=== PATIENT | male | born 1995 | race American Indian/Alaskan Native ===

== ENCOUNTER 2021-10-29 17:29 | Emergency (ER) | payer SELFPAY ==
[2021-10-29 18:47] LABS: Hematocrit 49.7 % (35.5-45.6); Mean Corpuscular HGB Conc 32 % (32-34); Mean Corpuscular Volume 91 fl (84-94); Platelet Count 218 K/mm3 (140-440); Red Blood Count 5.48 M/mm3 (3.65-5.03); Red Cell Distribution Width 15.2 % (13.2-15.2)
[2021-10-29 19:06] LABS: Calcium 8.1 mg/dL (8.4-10.2)
[2021-10-29] MEDS ORDERED: SODIUM CHLORIDE 0.9% 1000 ML 1,000 ML IV ONE ×2 (19:10→19:11)
[2021-10-29 19:30] LABS: Basophils % (Manual) 0 % (0.0-1.8); Eosinophils % (Manual) 0 % (0.0-4.3); Platelet Estimate Consistent w Auto; RBC Morphology Normal; Total Cells Counted 100
--- NOTE | 2021-10-29 19:33 | Emergency Department Report ---
HPI - General Chief Complaint: Overdose PUI?: No Time Seen by Provider: 10/29/21 17:50 - HPI HPI: This patient is a 25-year-old male with history of heroin and alcohol abuse, brought in by EMS for suspected opiate overdose. The patient received multiple dosages of intranasal as well as intravenous Narcan by EMS personnel prior to arrival. EMS personnel report the patient was brought to a local fire station by an undisclosed female. Upon the patient's arrival he was unresponsive. However the patient became responsive upon arriving to the emergency department. Patient is actively singing songs and rapping songs upon arrival, and stating "I feel just fine." He denies consuming alcohol or any illicit drugs. Denies any chest pain shortness of breath difficulty breathing headaches nausea vomiting diarrhea or any other symptoms. He does report "I feel a little sleepy." Pain currently 0/10 ED Past Medical Hx - Past Medical History Previous Medical History?: No - Social History Smoking Status: Current Every Day Smoker Substance Use Type: Alcohol, Heroin, Non Opiate Pain ED Review of Systems ROS: Stated complaint: OVERDOSE Other details as noted in HPI Comment: All other systems reviewed and negative Physical Exam - Physical Exam Vital Signs: Vital Signs 10/29/21 10/29/21 10/29/21 17:30 18:04 18:15 Temperature 97.8 F Pulse Rate 117 H 107 H 101 H Respiratory 14 14 17 Rate Blood Pressure 121/73 Blood Pressure 122/57 [Left] O2 Sat by Pulse 97 93 Oximetry 10/29/21 10/29/21 10/29/21 18:23 18:30 18:45 Temperature Pulse Rate 97 H 97 H Respiratory 18 18 14 Rate Blood Pressure 124/69 125/69 Blood Pressure [Left] O2 Sat by Pulse 97 98 92 Oximetry General: Gen: pt is well appearing, no acute distress, singing a song stating "If I had one wish, I'd make you my , make you my whole life!" Loquacious, no drooling no stridor no distress HEENT: Normocephalic atraumatic pupils equally round and reactive to light extraocular muscles intact sclera anicteric Neck: Full range of motion, no midline spinal tenderness palpation, no JVD, no carotid bruits, no nuchal rigidity CVS: S1-S2 regular rate and rhythm with no gallops rubs or murmurs, chest wall nontender Pulmonary: Clear to auscultation bilaterally, no wheezes rales or rhonchi Abdomen: Soft nondistended nontender no guarding or rebound tenderness, no palpable deformities or step-offs, normal active bowel sounds, no hepatosplenomegaly, no pulsatile masses : Deferred Extremities: No cyanosis no clubbing no edema, intact distal peripheral pulses, Integumentary: Skin normal, no petechia no purpura no abscess no lacerations no evidence of trauma no evidence of infection Neuro: Patient is awake alert and oriented to person place time situation, mentating well, cranial nerves II through XII intact, no focal neurodeficits, sensation grossly tact Psych: Calm cooperative, mood affect normal ED Course Vital Signs 10/29/21 10/29/21 10/29/21 17:30 18:04 18:15 Temperature 97.8 F Pulse Rate 117 H 107 H 101 H Respiratory 14 14 17 Rate Blood Pressure 121/73 Blood Pressure 122/57 [Left] O2 Sat by Pulse 97 93 Oximetry 10/29/21 10/29/21 10/29/21 18:23 18:30 18:45 Temperature Pulse Rate 97 H 97 H Respiratory 18 18 14 Rate Blood Pressure 124/69 125/69 Blood Pressure [Left] O2 Sat by Pulse 97 98 92 Oximetry - Reevaluation(s) Reevaluation #1: 10/29/21 18:32: Patient observed texting on personal cellular telephone, he is mildly sleepy appearing but otherwise he is well-appearing. Vitals are stable. He denies any symptoms. Patient asked to provide urinalysis sample. Reevaluation #2: 10/29/21 19:41 Patient observed to [facility] in examination room. He states he feels nauseated but denies any active abdominal pain chest pain shortness of breath difficulty breathing palpitations dizziness or any other symptoms. Pain currently 0 out of 10. ED Medical Decision Making - Lab Data Result diagrams: 10/29/21 18:28 10/29/21 18:28 - EKG Data -: EKG Interpreted by [facility] EKG shows normal: sinus rhythm Rate: normal - EKG Data When compared to previous EKG there are: changes noted - Radiology Data Radiology results: report reviewed - Medical Decision Making 25-year-old male with history of polysubstance abuse brought in by EMS for possible opioid overdose which responded to the patient having received both intranasal as well as intravenous Narcan. Patient tachycardic here. EKG demonstrates sinus tachycardia without any arrhythmia or dysrhythmias. Labs reviewed. Patient has elevated anion gap metabolic acidosis as well as alcohol intoxication. White blood cell count is 27,000 but patient has no signs or symptoms of acute infection. This may likely be secondary to metabolic demand in the setting of the patient's polysubstance abuse but this is unclear. The patient was ordered to be given 2 L of normal saline. Pt awaits administration of the 2 L of normal saline. He will require repeat comprehensive metabolic panel to ascertain that the anion gap has improved, repeat white blood cell count, and repeat alcohol level in several hours. Due to change in provider shift time at 2100, patient signed out to Dr. Phan Marquis for further management and final disposition. Critical care attestation.: If time is entered above; I have spent that time in minutes in the direct care of this critically ill patient, excluding procedure time. ED Disposition Clinical Impression: Alcohol intoxication Disposition: 30 STILL A PATIENT Is pt being admited?: No Does the pt Need Aspirin: No Condition: Stable
[2021-10-29 19:54] VITALS: BP 115/64
--- NOTE | 2021-10-29 19:57 | XRay Report ---
CHEST 1 VIEW 10/29/2021 6:51 PM INDICATION / CLINICAL INFORMATION: drug overdose. COMPARISON: None available. FINDINGS: SUPPORT DEVICES: None. HEART / MEDIASTINUM: No significant abnormality. LUNGS / PLEURA: No significant pulmonary abnormality. No significant pleural effusion. No pneumothora x. ADDITIONAL FINDINGS: No significant additional findings. IMPRESSION: 1. No acute abnormality of the chest. Signer Name: Mateo Haque MD Signed: 10/29/2021 7:53 PM Workstation Name: [id number]
[2021-10-29 19:58] LABS: Color,Urine Colorless (Yellow)
[2021-10-29 19:59] LABS: Bilirubin,Urine Negative (Negative); Blood,Urine Negative (Negative); Urobilinogen,Urine 0.2 mg/dL (<2.0)
[2021-10-29 20:03] LABS: Granular Casts,Urine 16 /LPF; Mucus,Urine FEW /HPF
[2021-10-29] MEDS ORDERED: ONDANSETRON 4 MG/2 ML INJ IV ONE (20:12)
[2021-10-29] MEDS ORDERED: FAMOTIDINE 20 MG/2 ML INJ IV ONE (20:12)
[2021-10-29 20:18] LABS: Amphetamine Screen,Urine PRESUMPTIVE NEGATIVE; Benzodiazepines Screen,Urine PRESUMPTIVE NEGATIVE; Cannabinoid Screen,Urine PRESUMPTIVE NEGATIVE; Cocaine Screen,Urine PRESUMPTIVE POSITIVE; Methadone Screen,Urine PRESUMPTIVE NEGATIVE; Opiate Screen,Urine PRESUMPTIVE NEGATIVE
--- NOTE | 2021-10-29 20:33 | Cat Scan Report ---
CT ABDOMEN AND PELVIS WITH CONTRAST INDICATION / CLINICAL INFORMATION: wbc 27k, mid abdominal pain, vomiting. TECHNIQUE: Axial CT images were obtained through the abdomen and pelvis after 100 cc Omnipaque [address] scans at this location are performed using CT dose reduction for ALARA by means of automated exposure control. COMPARISON: One view of the chest performed today. FINDINGS: LOWER CHEST: Scattered ground glass opacities are seen along the right lower lobe. No other significa nt abnormality. LIVER: No significant abnormality. GALLBLADDER: No significant abnormality. BILE DUCTS: No significant abnormality. PANCREAS: No significant abnormality. SPLEEN: No significant abnormality. ADRENALS: No significant abnormality. RIGHT KIDNEY/URETER: No significant abnormality. LEFT KIDNEY/URETER: No significant abnormality. STOMACH/SMALL BOWEL: No significant abnormality. COLON: No significant abnormality. APPENDIX: No significant abnormality. PERITONEUM: No free fluid. No free air. No fluid collection. LYMPH NODES: No significant adenopathy. VASCULATURE: No significant abnormality. URINARY BLADDER: No significant abnormality. REPRODUCTIVE ORGANS: No significant abnormality. ADDITIONAL FINDINGS: None. BONES: No significant abnormality IMPRESSION: 1. Suspected right lower lobe pneumonia. 2. No acute findings in the abdomen or pelvis to explain the patient's leukocytosis or pain. Signer Name: Mateo Haque MD Signed: 10/29/2021 8:29 PM Workstation Name: [id number]
== END 2021-10-29 21:01 | disposition left against medical advice (07) ==
LOC: ED 17:29
DX: F10.129 Alcohol abuse with intoxication, unspecified (principal); F17.200 Nicotine dependence, unspecified, uncomplicated; Y90.9 Presence of alcohol in blood, level not specified
CPT/HCPCS: 36415; 71045; 74177; 80048; 80307; 81001; 85007; 85025; 96360; 99285; J2405; J3490; J7030; Q9967; 80320; G0480

== ENCOUNTER 2021-11-01 16:45 | Inpatient (IN) | payer SELFPAY ==
[2021-11-01] MEDS ORDERED: ZIPRASIDONE MESYLATE 20 MG VIAL IM ONE (17:07)
[2021-11-01] MEDS ORDERED: SODIUM CHLORIDE 0.9% 1000 ML 1,000 ML IV ONE ×2 (17:59→21:23)
--- NOTE | 2021-11-01 18:06 | Emergency Department Report ---
History of Present Illness - General Chief Complaint: Overdose Stated Complaint: OVERDOSE Time Seen by Provider: 11/01/21 17:37 Source: EMS Mode of arrival: Stretcher Limitations: Altered Mental Status - History of Present Illness Initial Comments: 25 yo M brought in by EMS with possible overdose on unknown illicit drug. Pt's friends called for unresponsiveness and he was found face down with pinpointed pupil. He was given 4 round of narcan and he started streaming even while he was been wheeled into the ED. He continue to scream loudly until he was given Haldol, Benadryl and ativan with Geodon. No other modifying or associated factor reported. - Related Data Allergies Allergy/AdvReac Type Severity Reaction Status Date / Time Unable to Assess Allergy Unverified 10/29/21 17:45 ED Review of Systems ROS: Stated complaint: OVERDOSE Other details as noted in HPI Comment: All other systems reviewed and negative Eyes: other (dilated pupil at the ED at this time) Respiratory: denies: shortness of breath Other: overdose on unknown illicit drug ED Past Medical Hx - Social History Smoking Status: Current Every Day Smoker Substance Use Type: Alcohol, Heroin, Non Opiate Pain ED Physical Exam - General Limitations: Altered Mental Status General appearance: alert, obese (screaming and agitated ) - Head Head exam: Present: atraumatic, normal inspection - Eye Eye exam: Present: other (dilated pupil ) Pupils: Present: other (dilated pupil ) - ENT ENT exam: Present: normal exam, normal orophraynx, mucous membranes moist - Neck Neck exam: Present: normal inspection, full ROM. Absent: tenderness - Respiratory Respiratory exam: Present: normal lung sounds bilaterally. Absent: respiratory distress, accessory muscle use - Cardiovascular Cardiovascular Exam: Present: regular rate, normal rhythm, normal heart sounds - GI/Abdominal GI/Abdominal exam: Present: soft, normal bowel sounds. Absent: distended, tenderness - Extremities Exam Extremities exam: Present: normal inspection, normal capillary refill. Absent: tenderness - Back Exam Back exam: Absent: tenderness - Neurological Exam Neurological exam: Present: alert - Psychiatric Psychiatric exam: Present: agitated - Skin Skin exam: Present: warm, normal color ED Course Vital Signs 11/01/21 11/01/21 11/01/21 18:38 20:47 21:00 Pulse Rate 118 H 115 H Respiratory 18 36 H 33 H Rate Blood Pressure 109/64 Blood Pressure [Left] O2 Sat by Pulse 98 88 Oximetry 11/01/21 11/01/21 11/01/21 21:15 21:30 21:45 Pulse Rate 111 H 110 H 109 H Respiratory 29 H 25 H 26 H Rate Blood Pressure 101/65 91/68 97/64 Blood Pressure [Left] O2 Sat by Pulse 97 98 96 Oximetry 11/01/21 11/01/21 22:01 22:14 Pulse Rate 111 H 113 H Respiratory 32 H 33 H Rate Blood Pressure 73/44 Blood Pressure 126/76 [Left] O2 Sat by Pulse 91 Oximetry - Reevaluation(s) Reevaluation #1: 11/01/21 23:46 I was able to speak with patient's mother Ms Lydia Oshea who gave consent to doing the urgent dialysis and any other medical treatment that is needed - Consultations Consultation #1: 11/01/21 23:01 Dr Perea consulted who suggested to have coppersmith helper notified for their input Consultation #2: 11/01/21 23:21 Dr Saavedra consulted who suggested adding insulin 5 units iv and Sorbital and D50 with 60 g of Kayexalate, and 4 mg of Bumex--and the patient will need to be dialyzed urgently tonight. Consultation #3: 11/01/21 23:32 Dr Blveins consulted the intensive for the urgent vascular access-- who plan to come in and help with vascular access-- 11/01/21 23:42 ED Medical Decision Making - Lab Data Result diagrams: 11/01/21 18:07 11/01/21 21:37 - EKG Data -: EKG Interpreted by Me EKG shows normal: sinus rhythm Rate: tachycardia - EKG Data 11/01/21 21:44 Noted with sinus tachycardia at a rate of 114 bpm with right axis deviation with no specific ST depression or elevation noted in this abnormal ECG. - Medical Decision Making OD on unknown illicit drug -- with pinpointed pupil before narcan this is likely opioid overdose such as heroine but could also be order common street opioid--to find out we will go ahead and other UDS and routine labs -- including thyroid profile-- lab reviewed and noted with elevated potassium at 8.2 this could also be a lab error so will recheck this immediately..EKG obtained did not show Peak T Wave-- will continue to monitor. Also noted with elevated AST/ALT-- 100/58 likely alcoholic related-- creatinine is also elevated that is likely as a result of dehydration-- A repeated potassium resulted to be 8.4 so this is a true critical level-- will go ahead and give calcium bicarbonate to stabilize cardiac membrane, will also start D5 normal saline and give 5 units of insulin IV and 5 units of insulin subcu to push back the potassium across the membrane--we will consider admitting this patient for further evaluation and treatment We will go ahead and consult with Dr. Perea for further evaluation and treatment Critical Care Time: Yes (120) Critical care attestation.: If time is entered above; I have spent that time in minutes in the direct care of this critically ill patient, excluding procedure time. Pt brought in overdose on unknown illicit drug and noted with acute renal failure needing urgent dialysis tonight and due to high probability of clinically significant, life threatening deterioration, this patient required my highest level of preparedness to intervene emergently and I personally spent this critical care time directly and personally managing this patient. This critical care time included obtaining a history; examining this patient; pulse oximetry ; ordering and review of studies ; arranging urgent treatment with development of a management plan ; evaluation of patient's response to treatment ; frequent reassessment ; and, discussion with other providers. This critical care time was performed to assess and manage the high probability of imminent, life-threatening deterioration that could result in multiple organ damage if not done in a timely fashion. ED Disposition Clinical Impression: Acute hyperkalemia Opioid overdose Qualifiers: Encounter type: initial encounter Injury intent: undetermined intent Qualified Code(s): T40.2X4A - Poisoning by other opioids, undetermined, initial encounter Acute renal failure Qualifiers: Acute renal failure type: unspecified Qualified Code(s): N17.9 - Acute kidney failure, unspecified Disposition: 09 ADMITTED INPATIENT Is pt being admited?: Yes Does the pt Need Aspirin: No Condition: Critical Referrals: NORAH BLANCHARD MD [Primary Care Provider] - 3-5 Days
[2021-11-01] MEDS ORDERED: LORazepam 2 MG/ML VIAL IV ONE (18:56)
[2021-11-01] MEDS ORDERED: diphenhydrAMINE 50 MG/ML VIAL IV ONE (18:56)
[2021-11-01] MEDS ORDERED: HALOPERIDOL LACTATE 5 MG/1 ML INJ IM ONE (18:57)
[2021-11-01 19:00] LABS: Basophils % (Auto) 0.4 % (0.0-1.8); Eosinophils % (Auto) 0.3 % (0.0-4.3); Hematocrit 50.1 % (35.5-45.6); Hemoglobin 16.8 gm/dl (11.8-15.2); Lymphocytes # (Auto) 0.7 K/mm3 (1.2-5.4); Lymphocytes % (Auto) 8.2 % (13.4-35.0); Mean Corpuscular HGB Conc 34 % (32-34); Mean Corpuscular Volume 90 fl (84-94); Monocytes # (Auto) 0.2 K/mm3 (0.0-0.8); Platelet Count 199 K/mm3 (140-440); Red Blood Count 5.59 M/mm3 (3.65-5.03); Red Cell Distribution Width 14.6 % (13.2-15.2)
[2021-11-01 19:11] LABS: INR 0.88 (0.87-1.13)
[2021-11-01 19:20] LABS: Albumin 5.1 g/dL (3.9-5); Calcium 8.5 mg/dL (8.4-10.2)
[2021-11-01 19:25] LABS: Free T4 (Free Thyroxine) 1.47 ng/dL (0.76-1.46)
[2021-11-01 19:31] LABS: Chol/HDL Ratio 3.7 %
[2021-11-01] MEDS ORDERED: NALOXONE 2 MG/2 ML INJ IV ONE (20:23)
[2021-11-01 22:04] LABS: Calcium 8.2 mg/dL (8.4-10.2)
[2021-11-01] MEDS ORDERED: INSULIN REGULAR, HUMAN 100 UNITS/1 ML IV ONE (22:58)
[2021-11-01] MEDS ORDERED: INSULIN REGULAR, HUMAN 100 UNITS/1 ML SUB-Q ONE (22:58)
[2021-11-01] MEDS ORDERED: D5W/0.9% NACL 1,000 ML IV SCH (23:00)
[2021-11-01] MEDS ORDERED: SODIUM BICARBONATE 150 MEQ in DEXTROSE 5% IN WATER 1,000 ML IV SCH (23:00)
[2021-11-01] MEDS ORDERED: CALC GLUCONATE 1GM/NS 100 ML 1 GM/100 ML BAG IV ONE (23:00)
[2021-11-01] MEDS ORDERED: DEXTROSE 50% IN WATER (25GM) 50 ML SYRINGE IV ONE ×2 (23:12→23:15)
[2021-11-01] MEDS ORDERED: SODIUM POLYSTYRENE 15 GM/60 ML ORAL LIQD PR ONE (23:15)
[2021-11-01] MEDS ORDERED: BUMETANIDE 1 MG/4 ML INJ IV ONE (23:16)
[2021-11-01] MEDS ORDERED: ACETAMINOPHEN 325 MG TAB PO PRN (23:24)
[2021-11-01] MEDS ORDERED: ONDANSETRON 4 MG/2 ML INJ IV PRN (23:24)
[2021-11-01] MEDS ORDERED: MORPHINE 2 MG/1 ML INJ IV PRN (23:24)
[2021-11-01] MEDS ORDERED: ALBUTEROL 2.5 MG/3 ML NEBU IH PRN (23:24)
[2021-11-01] MEDS ORDERED: MORPHINE 4 MG/1 ML INJ IV PRN (23:24)
[2021-11-01] MEDS ORDERED: ALBUTEROL 2.5 MG/3 ML NEBU IH ONE (23:24)
--- NOTE | 2021-11-01 23:39 | Progress Note ---
Assessment and Plan Risks and benefits of [employer]ERK d/w family who are agreeable. ICU team to put in Vascath and stat HD ordered. Family consented for dialysis. Subjective Date of service: 11/01/21 Objective - Vital Signs Vital signs: Vital Signs - 12hr 11/01/21 11/01/21 11/01/21 18:38 20:47 21:00 Pulse Rate 118 H 115 H Respiratory 18 36 H 33 H Rate Blood Pressure 109/64 Blood Pressure [Left] O2 Sat by Pulse 98 88 Oximetry 11/01/21 11/01/21 11/01/21 21:15 21:30 21:45 Pulse Rate 111 H 110 H 109 H Respiratory 29 H 25 H 26 H Rate Blood Pressure 101/65 91/68 97/64 Blood Pressure [Left] O2 Sat by Pulse 97 98 96 Oximetry 11/01/21 11/01/21 22:01 22:14 Pulse Rate 111 H 113 H Respiratory 32 H 33 H Rate Blood Pressure 73/44 Blood Pressure 126/76 [Left] O2 Sat by Pulse 91 Oximetry - Lab 11/01/21 18:07 11/01/21 21:37 Most recent lab results Calcium 8.2 mg/dL (8.4-10.2) L 11/01/21 21:37 Medications & Allergies - Medications Allergies/Adverse Reactions: Allergies Unable to Assess Allergy (Unverified 10/29/21 17:45) PATIENT NONRESPONSIVE Active Medications: Generic Name Dose Route Start Last Admin Trade Name Freq PRN Reason Stop Dose Admin Acetaminophen 650 mg 11/01/21 23:24 Acetaminophen 325 Mg Tab PO Q4H PRN Pain MILD(1-3)/Fever >100.5/WALKER Albuterol 2.5 mg 11/01/21 23:24 Albuterol 2.5 Mg/3 Ml Nebu IH Q3HRT PRN Shortness Of Breath Albuterol/Ipratropium 1 ampul 11/02/21 02:00 Ipratropium/Albuterol Sulfate 3 Ml Ampul.Neb IH Q6HRT ANA M Famotidine 20 mg 11/02/21 10:00 Famotidine 20 Mg/2 Ml Inj IV BID ANA M Heparin Sodium (Porcine) 5,000 unit 11/02/21 10:00 Heparin 5,000 Unit/1 Ml Vial SUB-Q Q12HR ANA M Sodium Bicarbonate 150 meq/ 1,150 mls @ 125 mls/hr 11/01/21 23:00 Dextrose IV DIRECT ANA M Dextrose/Sodium Chloride 1,000 mls @ 125 mls/hr 11/01/21 23:00 D5ns IV DIRECT ANA M Morphine Sulfate 2 mg 11/01/21 23:24 Morphine 2 Mg/1 Ml Inj IV Q4H PRN Pain, Moderate (4-6) Morphine Sulfate 4 mg 11/01/21 23:24 Morphine 4 Mg/1 Ml Inj IV Q4H PRN Pain , Severe (7-10) Ondansetron HCl 4 mg 11/01/21 23:24 Ondansetron 4 Mg/2 Ml Inj IV Q8H PRN Nausea And Vomiting Sodium Chloride 10 ml 11/02/21 10:00 Sodium Chloride 0.9% 10 Ml Flush Syringe IV BID ANA M Sodium Chloride 10 ml 11/01/21 23:24 Sodium Chloride 0.9% 10 Ml Flush Syringe IV PRN PRN LINE FLUSH
--- NOTE | 2021-11-01 23:39 | History and Physical Report ---
History of Present Illness Date of examination: 11/01/21 Date of admission: 11/01/21 Chief complaint: Drug overdose History of present illness: 25 yo M brought in by EMS with possible overdose on unknown illicit drug. Pt's friends called for unresponsiveness and he was found face down with pinpointed pupil. He was given 4 round of narcan and he started streaming even while he was been wheeled into the ED. He continue to scream loudly until he was given Haldol, Benadryl and ativan with Arsen. No other modifying or associated factor reported. In the emergency room patient is found to have potassium of 8.4, BUN 21 and creatinine 2.9 and glucose 52. Subsequently Case was discussed with Dr. morgan cardona who suggested adding insulin 5 units iv and Sorbital and D50 with 60 g of Kayexalate, and 4 mg of Bumex--and the patient will need to be dialyzed urgently tonight. Critical care is consulted Past History Past Medical History: other (Alcohol, Heroin, Non Opiate Pain) Past Surgical History: No surgical history Social history: smoking, alcohol abuse, other (Alcohol, Heroin, Non Opiate Pain) Family history: no significant family history Medications and Allergies Allergies Allergy/AdvReac Type Severity Reaction Status Date / Time Unable to Assess Allergy Unverified 10/29/21 17:45 Active Meds: Active Medications Acetaminophen (Acetaminophen 325 Mg Tab) 650 mg PO Q4H PRN PRN Reason: Pain MILD(1-3)/Fever >100.5/WALKER Albuterol (Albuterol 2.5 Mg/3 Ml Nebu) 2.5 mg IH Q3HRT PRN PRN Reason: Shortness Of Breath Albuterol/Ipratropium (Ipratropium/Albuterol Sulfate 3 Ml Ampul.Neb) 1 ampul IH Q6HRT ANA M Famotidine (Famotidine 20 Mg/2 Ml Inj) 20 mg IV BID ANA M Heparin Sodium (Porcine) (Heparin 5,000 Unit/1 Ml Vial) 5,000 unit SUB-Q Q12HR ANA M Sodium Bicarbonate 150 meq/ (Dextrose) 1,150 mls @ 125 mls/hr IV DIRECT ANA M Dextrose/Sodium Chloride (D5ns) 1,000 mls @ 125 mls/hr IV DIRECT ANA M Morphine Sulfate (Morphine 2 Mg/1 Ml Inj) 2 mg IV Q4H PRN PRN Reason: Pain, Moderate (4-6) Morphine Sulfate (Morphine 4 Mg/1 Ml Inj) 4 mg IV Q4H PRN PRN Reason: Pain , Severe (7-10) Ondansetron HCl (Ondansetron 4 Mg/2 Ml Inj) 4 mg IV Q8H PRN PRN Reason: Nausea And Vomiting Sodium Chloride (Sodium Chloride 0.9% 10 Ml Flush Syringe) 10 ml IV BID ANA M Sodium Chloride (Sodium Chloride 0.9% 10 Ml Flush Syringe) 10 ml IV PRN PRN PRN Reason: LINE FLUSH Review of Systems All systems: negative Constitutional: fatigue, malaise, lethargy, other (Unresponsive) Exam - Constitutional Vitals: Temp Pulse Resp BP Pulse Ox 113 H 33 H 126/76 91 11/01/21 22:14 11/01/21 22:14 11/01/21 22:14 11/01/21 22:14 General appearance: Present: severe distress, well-nourished - EENT Eyes: Present: PERRL ENT: hearing intact, clear oral mucosa - Neck Neck: Present: supple, normal ROM - Respiratory Respiratory effort: normal Respiratory: bilateral: CTA - Cardiovascular Heart Sounds: Present: S1 & S2. Absent: rub, click - Extremities Extremities: pulses symmetrical, No edema Peripheral Pulses: within normal limits - Abdominal General gastrointestinal: Present: soft, non-tender, non-distended, normal bowel sounds Male genitourinary: Present: normal - Integumentary Integumentary: Present: clear, warm, dry - Musculoskeletal Musculoskeletal: gait normal, strength equal bilaterally - Psychiatric Psychiatric: other (Patient is altered mental) - Neurologic Neurologic: CNII-XII intact, moves all extremities HEART Score - HEART Score Troponin: Troponin T 0.058 ng/mL (0.00-0.029) H 11/01/21 18:07 Results - Labs CBC & Chem 7: 11/01/21 18:07 11/01/21 21:37 Labs: Laboratory Last Values WBC 7.9 K/mm3 (4.5-11.0) 11/01/21 18:07 RBC 5.59 M/mm3 (3.65-5.03) H 11/01/21 18:07 Hgb 16.8 gm/dl (11.8-15.2) H 11/01/21 18:07 Hct 50.1 % (35.5-45.6) H 11/01/21 18:07 MCV 90 fl (84-94) 11/01/21 18:07 MCH 30 pg (28-32) 11/01/21 18:07 MCHC 34 % (32-34) 11/01/21 18:07 RDW 14.6 % (13.2-15.2) 11/01/21 18:07 Plt Count 199 K/mm3 (140-440) 11/01/21 18:07 Lymph % (Auto) 8.2 % (13.4-35.0) L 11/01/21 18:07 [place] % (Auto) 3.0 % (0.0-7.3) 11/01/21 18:07 Eos % (Auto) 0.3 % (0.0-4.3) 11/01/21 18:07 Baso % (Auto) 0.4 % (0.0-1.8) 11/01/21 18:07 Lymph # (Auto) 0.7 K/mm3 (1.2-5.4) L 11/01/21 18:07 [place] # (Auto) 0.2 K/mm3 (0.0-0.8) 11/01/21 18:07 Eos # (Auto) 0.0 K/mm3 (0.0-0.4) 11/01/21 18:07 Baso # (Auto) 0.0 K/mm3 (0.0-0.1) 11/01/21 18:07 Seg Neutrophils % 88.1 % (40.0-70.0) H 11/01/21 18:07 Seg Neutrophils # 7.0 K/mm3 (1.8-7.7) 11/01/21 18:07 PT 13.1 Sec. (12.2-14.9) 11/01/21 18:07 INR 0.88 (0.87-1.13) 11/01/21 18:07 Sodium 142 mmol/L (137-145) 11/01/21 21:37 Potassium 8.4 mmol/L (3.6-5.0) H* 11/01/21 21:37 Chloride 99.1 mmol/L (98-107) 11/01/21 21:37 Carbon Dioxide 22 mmol/L (22-30) 11/01/21 21:37 Anion Gap 29 mmol/L 11/01/21 21:37 BUN 21 mg/dL (9-20) H 11/01/21 21:37 Creatinine 2.9 mg/dL (0.8-1.3) H 11/01/21 21:37 Estimated GFR 32 ml/min 11/01/21 21:37 BUN/Creatinine Ratio 7 % 11/01/21 21:37 Glucose 52 mg/dL (75-100) L 11/01/21 21:37 Calcium 8.2 mg/dL (8.4-10.2) L 11/01/21 21:37 Total Bilirubin 0.60 mg/dL (0.1-1.2) 11/01/21 18:07 AST 100 units/L (5-40) H 11/01/21 18:07 ALT 58 units/L (7-56) H 11/01/21 18:07 Alkaline Phosphatase 84 units/L (35-129) 11/01/21 18:07 Troponin T 0.058 ng/mL (0.00-0.029) H 11/01/21 18:07 Total Protein 7.7 g/dL (6.3-8.2) 11/01/21 18:07 Albumin 5.1 g/dL (3.9-5) H 11/01/21 18:07 Albumin/Globulin Ratio 2.0 % 11/01/21 18:07 Triglycerides 144 mg/dL (2-149) 11/01/21 18:07 Cholesterol 211 mg/dL (50-199) H 11/01/21 18:07 LDL Cholesterol Direct 132 mg/dL (50-130) H 11/01/21 18:07 HDL Cholesterol 57 mg/dL (40-59) 11/01/21 18:07 Cholesterol/HDL Ratio 3.70 % 11/01/21 18:07 TSH 0.808 mlU/mL (0.270-4.200) 11/01/21 18:07 Free T4 1.47 ng/dL (0.76-1.46) H 11/01/21 18:07 Assessment and Plan VTE prophylaxis?: Chemical Plan of care discussed with patient/family: Yes - Patient Problems (1) Acute hyperkalemia Current Visit: Yes Status: Acute Plan to address problem: Admit the patient to the ICU. D5 W normal saline at the rate of 125 cc/h. Patient already got insulin Kayexalate calcium gluconate and Bumex as per nephrology recommendation. We will do emergent dialysis tonight. We consulted nephrology and critical care evaluation. Recheck BMP in the morning (2) Opioid overdose Current Visit: Yes Status: Acute Qualifiers: Encounter type: initial encounter Injury intent: undetermined intent Qualified Code(s): T40.2X4A - Poisoning by other opioids, undetermined, initial encounter Plan to address problem: We counseled the patient regarding quit taking opioid. Oxygen via nasal catheter per minute. DuoNeb nebulizer every 4 hours (3) Alcohol intoxication Current Visit: No Status: Acute Plan to address problem: We will put the patient on thiamine 100 mg IV daily, folic acid 1 mg IV daily and banana bag daily. We counseled the patient regarding quit drinking (4) Cocaine abuse Current Visit: No Status: Acute Plan to address problem: We counseled regarding quit taking cocaine (5) LIT (acute kidney injury) Current Visit: Yes Status: Acute Plan to address problem: Avoid nephrotoxic drug. Renally dose medication. D5 normal saline at the rate of 125 cc/h. We will consult nephrology for emergent dialysis. Recheck BMP in the morning (6) DVT prophylaxis Current Visit: Yes Status: Acute Plan to address problem: Heparin 5000 units subcu every 12 hours for DVT prophylaxis. Pepcid 20 mg IV every 12 hours for the GI prophylaxis. Patient is a full code
[2021-11-01 23:49] LABS: Amphetamine Screen,Urine PRESUMPTIVE POSITIVE
[2021-11-02 00:16] LABS: Benzodiazepines Screen,Urine PRESUMPTIVE NEGATIVE; Cannabinoid Screen,Urine PRESUMPTIVE NEGATIVE; Cocaine Screen,Urine PRESUMPTIVE POSITIVE; Methadone Screen,Urine PRESUMPTIVE NEGATIVE; Opiate Screen,Urine PRESUMPTIVE NEGATIVE
[2021-11-02] MEDS ORDERED: MIDAZOLAM 2 MG/2 ML INJ IV ONE (00:32)
[2021-11-02] MEDS ORDERED: fentaNYL 100 MCG/2 ML INJ IV ONE (00:32)
[2021-11-02 00:34] LABS: ABG Base Excess -5.8 mmol/L (-2.0-3.0); ABG HCO3 20.6 mmol/L (20.0-26.0); ABG Methemoglobin 0.5 % (0.0-1.5); ABG Oxygen Saturation 95.3 % (95.0-99.0); ABG PCO2 43.5 mm Hg; ABG PH 7.293 pH Units (7.350-7.450); ABG PO2 77.1 mm Hg (80.0-90.0)
--- NOTE | 2021-11-02 01:15 | Procedure Note ---
Date of procedure: 11/02/21 Pre-op diagnosis: hyperkalemia, renal failure Post-op diagnosis: same Procedure: right IJ vascath placement under ultrasound guidance Spoke with mother over the phone and patient at bedside to obtain my own consent. Using ultrasound guidance and seldinger technique, a vascath was placed in the right IJ with no immediate post op complications. Good blood return from all 3 ports and good flush. Did give patient 2 of versed and 50 of Fentanyl which he tolerated well. Woke up after cathter was sutured in place. CXR at bedside. Catheter in place, no pneumothorax. Patient appears to be volume overloaded too based on CXR. Spoke with HD nurse who is at bedside and ok to use catheter. Anesthesia: local Surgeon: RITA DAVILA Estimated blood loss: minimal Condition: critical Disposition: ICU
--- NOTE | 2021-11-02 01:21 | Consultation ---
History of Present Illness - Reason for Consult Consult date: 11/02/21 Hyperkalemia, Renal Failure Requesting physician: ELSA WATKINS - History of Present Illness 25 y/o male, known drug abuser, admitted for overdose. Found to be in acute renal failure with elevated potassium Per ED repeated and was not hemolyzed (8.0). Spoke with Dr. Saavedra who recommended emergent HD. Past History Past Medical History: other (Alcohol, Heroin, Non Opiate Pain, cocaine) Past Surgical History: No surgical history Social history: smoking, alcohol abuse, other (Alcohol, Heroin, Non Opiate Pain) Family history: no significant family history Medications and Allergies Allergies Allergy/AdvReac Type Severity Reaction Status Date / Time Unable to Assess Allergy Unverified 10/29/21 17:45 Active Meds: Active Medications Acetaminophen (Acetaminophen 325 Mg Tab) 650 mg PO Q4H PRN PRN Reason: Pain MILD(1-3)/Fever >100.5/WALKER Albuterol/Ipratropium (Ipratropium/Albuterol Sulfate 3 Ml Ampul.Neb) 1 ampul IH Q6HRT ANA M Famotidine (Famotidine 20 Mg/2 Ml Inj) 20 mg IV DAILY ANA M Heparin Sodium (Porcine) (Heparin 5,000 Unit/1 Ml Vial) 5,000 unit SUB-Q Q12HR ANA M Sodium Bicarbonate 150 meq/ (Dextrose) 1,150 mls @ 125 mls/hr IV DIRECT ANA M Sodium Chloride (Nacl 0.9% 1000 Ml) 1,000 mls @ 125 mls/hr IV DIRECT ANA M Morphine Sulfate (Morphine 2 Mg/1 Ml Inj) 2 mg IV Q4H PRN PRN Reason: Pain, Moderate (4-6) Morphine Sulfate (Morphine 4 Mg/1 Ml Inj) 4 mg IV Q4H PRN PRN Reason: Pain , Severe (7-10) Ondansetron HCl (Ondansetron 4 Mg/2 Ml Inj) 4 mg IV Q8H PRN PRN Reason: Nausea And Vomiting Sodium Chloride (Sodium Chloride 0.9% 10 Ml Flush Syringe) 10 ml IV BID ANA M Sodium Chloride (Sodium Chloride 0.9% 10 Ml Flush Syringe) 10 ml IV PRN PRN PRN Reason: LINE FLUSH Review of Systems ROS unobtainable: due to mental status Exam - Constitutional Vitals: Temp Pulse Resp BP Pulse Ox 113 H 33 H 126/76 91 11/01/21 22:14 11/01/21 22:14 11/01/21 22:14 11/01/21 22:14 General appearance: Present: no acute distress, well-nourished - EENT Eyes: Present: PERRL, EOM intact ENT: hearing intact - Neck Neck: Present: supple, normal ROM - Respiratory Respiratory effort: normal Respiratory: bilateral: diminished - Cardiovascular Rhythm: other (sinus tach) - Extremities Extremities: no ischemia - Abdominal General gastrointestinal: Present: soft, non-tender, normal bowel sounds Male genitourinary: Present: deferred - Rectal Rectal Exam: deferred Results - Labs CBC & Chem 7: 11/01/21 18:07 11/01/21 21:37 Labs: Abnormal lab results 11/01/21 11/01/21 11/01/21 Range/Units 18:07 18:07 18:07 RBC 5.59 H (3.65-5.03) M/mm3 Hgb 16.8 H (11.8-15.2) gm/dl Hct 50.1 H (35.5-45.6) % Lymph % (Auto) 8.2 L (13.4-35.0) % Lymph # (Auto) 0.7 L (1.2-5.4) K/mm3 Seg Neutrophils % 88.1 H (40.0-70.0) % ABG pH (7.350-7.450) pH Units ABG pO2 (80.0-90.0) mm Hg ABG Base Excess (-2.0-3.0) mmol/L Oxyhemoglobin (95.0-99.0) % Potassium 8.2 H* D (3.6-5.0) mmol/L Chloride 97.5 L (98-107) mmol/L BUN (9-20) mg/dL Creatinine 3.1 H D (0.8-1.3) mg/dL Glucose 66 L (75-100) mg/dL Calcium (8.4-10.2) mg/dL AST 100 H (5-40) units/L ALT 58 H (7-56) units/L Troponin T 0.058 H (0.00-0.029) ng/mL Albumin 5.1 H (3.9-5) g/dL Cholesterol 211 H (50-199) mg/dL LDL Cholesterol Direct 132 H (50-130) mg/dL Free T4 1.47 H (0.76-1.46) ng/dL 11/01/21 11/01/21 Range/Units 21:37 23:57 RBC (3.65-5.03) M/mm3 Hgb (11.8-15.2) gm/dl Hct (35.5-45.6) % Lymph % (Auto) (13.4-35.0) % Lymph # (Auto) (1.2-5.4) K/mm3 Seg Neutrophils % (40.0-70.0) % ABG pH 7.293 L (7.350-7.450) pH Units ABG pO2 77.1 L (80.0-90.0) mm Hg ABG Base Excess -5.8 L (-2.0-3.0) mmol/L Oxyhemoglobin 93.2 L (95.0-99.0) % Potassium 8.4 H* (3.6-5.0) mmol/L Chloride (98-107) mmol/L BUN 21 H (9-20) mg/dL Creatinine 2.9 H (0.8-1.3) mg/dL Glucose 52 L (75-100) mg/dL Calcium 8.2 L (8.4-10.2) mg/dL AST (5-40) units/L ALT (7-56) units/L Troponin T (0.00-0.029) ng/mL Albumin (3.9-5) g/dL Cholesterol (50-199) mg/dL LDL Cholesterol Direct (50-130) mg/dL Free T4 (0.76-1.46) ng/dL - Imaging and Cardiology Chest x-ray: image reviewed Assessment and Plan 25 y/o male with acute respiratory failure, polysubstance abuse admitted with altered mental state, acute renal failure and hyperkalemia 1. HD per renal 2. Suggest PRN ativan for agitation if needed given Cocaine and Amphetamine use. 3. Will transfer out of unit after HD most likely and repeat labs.
--- NOTE | 2021-11-02 01:50 | XRay Report ---
XR chest 1V ap INDICATION / CLINICAL INFORMATION: RIJ Trialysis placement. COMPARISON: 10/29/2021 FINDINGS: SUPPORT DEVICES: Right IJ central venous catheter projects over the right atrium. HEART /PULMONARY VASCULATURE: Heart is enlarged with increasing pulmonary vasculature congestion. LUNGS / PLEURA: Interval development of moderate bilateral pulmonary airspace opacities. No sizable p leural effusion. No pneumothorax. IMPRESSION: 1. Right IJ central venous catheter projects over the right atrium. 2. Increasing pulmonary vasculature congestion and moderate diffuse linear opacities, likely reflecti ng pulmonary edema. Signer Name: Agus Montez MD Signed: 11/02/2021 1:46 AM Workstation Name: [id number]
[2021-11-02] MEDS: SODIUM CHLORIDE 0.9% 1000 ML 1,000 ML IV SCH ×2 (02:02→16:51)
[2021-11-02 02:27] LABS: Hepatitis B Surface Antigen Non-Reactive (Negative); Hepatitis C Virus Antibody Non-Reactive (NonReactive)
[2021-11-02] MEDS ORDERED: ZIPRASIDONE MESYLATE 20 MG VIAL IM ONE (04:14)
[2021-11-02] MEDS ORDERED: diphenhydrAMINE 50 MG/ML VIAL IV ONE (04:15)
[2021-11-02] MEDS ORDERED: WATER FOR INJ Sterile (PF) 10 ML ONE (04:22)
[2021-11-02 04:51] LABS: Basophils # (Auto) 0.1 K/mm3 (0.0-0.1); Basophils % (Auto) 0.4 % (0.0-1.8); Hematocrit 38.6 % (35.5-45.6); Hemoglobin 13.1 gm/dl (11.8-15.2); Lymphocytes % (Auto) 7.5 % (13.4-35.0); Mean Corpuscular HGB Conc 34 % (32-34); Mean Corpuscular Volume 88 fl (84-94); Monocytes # (Auto) 0.5 K/mm3 (0.0-0.8); Monocytes % (Auto) 3.5 % (0.0-7.3); Platelet Count 137 K/mm3 (140-440); Red Blood Count 4.41 M/mm3 (3.65-5.03); Red Cell Distribution Width 14.6 % (13.2-15.2)
[2021-11-02 05:14] LABS: BUN/Creatinine Ratio 9; Blood Urea Nitrogen 10 mg/dL (9-20); Calcium 7.4 mg/dL (8.4-10.2); Hemolysis Index 6
--- NOTE | 2021-11-02 09:01 | Ultrasound Report ---
ULTRASOUND RENAL INDICATION: lit. COMPARISON: CT abdomen and pelvis with contrast from 10/29/2021.. FINDINGS: RIGHT KIDNEY: Size: 10.0 x 4.9 cm. Echogenicity: Increased. Parenchymal thickness: Mild thinning, 1.3 cm. Hydronephrosis: None. Cyst or mass: None. Stones: None. LEFT KIDNEY: Size: 12.9 x 5.3 cm. Echogenicity: Increased. Parenchymal thickness: Normal. Hydronephrosis: None. Cyst or mass: None. Stones: None. Urinary Bladder: Collapsed without a distinct significant abnormality. Free Fluid: None. Additional Findings: None. IMPRESSION Increased bilateral renal cortical echotexture, consistent with the provided history of LIT. No other acute findings. Signer Name: Mateo Haque MD Signed: 11/02/2021 8:57 AM Workstation Name: [email or web address]
[2021-11-02] MEDS: IPRATROPIUM/ALBUTEROL SULFATE 3 ML AMPUL.NEB IH SCH ×2 (09:04→16:47)
[2021-11-02] MEDS: FAMOTIDINE 20 MG TAB PO SCH ×2 (09:40→21:01)
[2021-11-02] MEDS: HEPARIN 5,000 UNIT/1 ML VIAL SUB-Q SCH ×2 (09:40→21:01)
[2021-11-02] MEDS ORDERED: FAMOTIDINE 20 MG/2 ML INJ IV SCH (10:00)
[2021-11-02] MEDS: NICOTINE 14 MG/24 HR PATCH TD SCH (10:19)
--- NOTE | 2021-11-02 11:15 | Electrocardiograph Report ---
[facility] Test Date: 2021-11-01 Test Time: 21:02:46 Pat Name: SARI ARROYO Department: Room: A259 1 Gender: M Food [employer]: CASA : [id number] Requested By: ELSA WATKINS Order Number: [id number] Reading MD: Shayan Harrington Measurements Intervals [place] Rate: 114 P: 52 OR: 132 QRS: 118 QRSD: 85 T: 43 QT: 296 QTc: 407 Interpretive Statements Sinus tachycardia Right axis deviation ST elev, probable normal early repol pattern No previous ECG available for comparison Electronically Signed On 11-02-2021 11:15:33 EDT by Shayan Harrington
--- NOTE | 2021-11-02 12:30 | Consultation ---
History of Present Illness - Reason for Consult Consult date: 11/02/21 acute renal failure, hyperkalemia - History of Present Illness This is a 25 year old male who presented to the E.R for being unresponsive. Patient was found unresponsive by his friend. Pertinenet labs revealed a potassium level of 8.4[place] [address] and serum creatinine of 2.9. Patient was emergently dialyzed last night given severe Hyperkalemia. Patient is currently awake and alert in ICU and states he smokes 1 pack of cigarette per day, drinks alcohol "here and there" and uses Heroin. We are being consulted for management of this patient's ARF and Hyperkalemia. Past History Past Medical History: other (Alcohol, Heroin, Non Opiate Pain, cocaine) Past Surgical History: No surgical history Social history: smoking, alcohol abuse, other (Alcohol, Heroin, Non Opiate Pain) Family history: no significant family history Medications and Allergies Allergies Allergy/AdvReac Type Severity Reaction Status Date / Time No Known Allergies Allergy Unverified 11/02/21 09:24 Home Medications Medication Instructions Recorded Confirmed Last Taken Type No Known Home Medications [No 11/02/21 11/02/21 Unknown History Reported Home Medications] Active Meds: Active Medications Acetaminophen (Acetaminophen 325 Mg Tab) 650 mg PO Q4H PRN PRN Reason: Pain MILD(1-3)/Fever >100.5/WALKER Albuterol/Ipratropium (Ipratropium/Albuterol Sulfate 3 Ml Ampul.Neb) 1 ampul IH Q6HRT [facility] Last Admin: 11/02/21 09:04 Dose: 1 ampul Famotidine (Famotidine 20 Mg Tab) 20 mg PO BID [facility] Last Admin: 11/02/21 09:40 Dose: 20 mg Heparin Sodium (Porcine) (Heparin 5,000 Unit/1 Ml Vial) 5,000 unit SUB-Q Q12HR [facility] Last Admin: 11/02/21 09:40 Dose: 5,000 unit Sodium Chloride (Nacl 0.9% 1000 Ml) 1,000 mls @ 125 mls/hr IV DIRECT [facility] Last Admin: 11/02/21 02:02 Dose: 125 mls/hr Melatonin (Melatonin 5 Mg Tab) 10 mg PO QHS PRN PRN Reason: Sleep Nicotine (Nicotine 14 Mg/24 Hr Patch) 14 mg TD QDAY [facility] Last Admin: 11/02/21 10:19 Dose: 14 mg Ondansetron HCl (Ondansetron 4 Mg/2 Ml Inj) 4 mg IV Q8H PRN PRN Reason: Nausea And Vomiting Sodium Chloride (Sodium Chloride 0.9% 10 Ml Flush Syringe) 10 ml IV BID [facility] Last Admin: 11/02/21 09:40 Dose: 10 ml Sodium Chloride (Sodium Chloride 0.9% 10 Ml Flush Syringe) 10 ml IV PRN PRN PRN Reason: LINE FLUSH Review of Systems Constitutional: fatigue, no weight loss, no weight gain, no fever Ears, nose, mouth and throat: no ear pain, no ear discharge, no tinnitis, no decreased hearing, no nose pain, no nasal congestion Cardiovascular: no chest pain, no orthopnea, no palpitations, no rapid/irregular heart beat, no edema, no syncope, no lightheadedness, no shortness of breath Respiratory: no cough, no cough with sputum, no excessive sputum, no hemoptysis, no shortness of breath, no dyspnea on exertion Gastrointestinal: no abdominal pain, no nausea, no vomiting, no diarrhea, no constipation, no change in bowel habits Genitourinary Male: no dysuria, no hematuria, no flank pain, no discharge, no urinary frequency Musculoskeletal: no neck stiffness, no neck pain, no shooting arm pain, no arm numbness/tingling, no low back pain, no shooting leg pain Integumentary: no rash, no pruritis, no redness, no sores, no wounds, no jaundice Neurological: no head injury, no transient paralysis, no paralysis, no weakness, no parathesias, no numbness, no tingling Psychiatric: no anxiety, no memory loss, no change in sleep habits, no sleep disturbances, no insomnia, no hypersomnia Endocrine: no cold intolerance, no heat intolerance, no polyphagia, no excessive thirst, no polydipsia, no polyuria, no nocturia Exam - Vital Signs Vital signs: Vital Signs Resp Pulse Ox 18 98 11/01/21 18:38 11/01/21 18:38 - General Appearance General appearance: well-developed, appears stated age EENT: ATNC, PERRL, hearing intact, vision intact Neck: Present: neck supple, trachea midline Respiratory: Decreased Breath Sounds Heart: S1S2 Gastrointestinal: Present: normoactive bowel sounds Integumentary: warm and dry Neurologic: alert and oriented x3 Musculoskeletal: Present: other (No edema) Results - Lab Results 11/02/21 04:33 11/02/21 04:00 Most recent lab results ABG pH 7.293 pH Units (7.350-7.450) L 11/01/21 23:57 ABG pCO2 43.5 mm Hg 11/01/21 23:57 ABG pO2 77.1 mm Hg (80.0-90.0) L 11/01/21 23:57 ABG HCO3 20.6 mmol/L (20.0-26.0) 11/01/21 23:57 ABG O2 Saturation 95.3 % (95.0-99.0) 11/01/21 23:57 Calcium 7.4 mg/dL (8.4-10.2) L 11/02/21 04:00 Assessment and Plan Assessment: Acute Renal Failure likely secondary to drug abuse Drug Abuse Hyperkalemia Rhabdomyolysis Plan: S/P emergent hemodialysis last night due to Hyperkalemia with potassium level of 8.2 Potassium level today has normalized to 3.7 Renal labs reviewed. Serum creatinine yesterday was 3.1, post HD currently is 1.1 today CK level noted to be 39,867. On NS@ 125 ml/hr. Check CK level daily. Drug abuse (Heroin) and Smoking-will need counseling about cessation of both Obtain daily weights Obtain urine lytes Renally dose medications Avoid nephrotoxic agents Continue to monitor electrolytes and renal function Plan of care reviewed by Dr. Osborne
[2021-11-02] MEDS ORDERED: LORazepam 2 MG/ML VIAL IV PRN (14:08)
--- NOTE | 2021-11-02 14:25 | Progress Note ---
Assessment and Plan Assessment and plan: This is a 25-year-old male with polysubstance abuse admitted with acute kidney injury, hyperkalemia with overdose of possible cocaine/phentermine Neuro: Polysubstance abuse (h/o cocaine, etoh and nicotine) -UDS positive for cocaine and amphetamines. -EtOH blood level pending -Given Haldol, Benadryl, Ativan and Geodon in the emergency department for severe agitation -Reorientation as needed -Maintain sleep-wake cycle -Patient states he takes trazodone nightly -Started on melatonin as needed -Psych consulted, appreciate recommendations -Per family patient was recently discharged from substance abuse program -PRN ativan Cardiac: ST, HLD -Blood pressure monitoring per protocol -Encourage lifestyle modifications Respiratory: Acute hypoxic respiratory failure, Current nicotine abuse (1ppd) -CCM consulted, appreciate recommendations -Nicoderm TD -Nicotine abuse cessation counseling provided -Supplemental oxygen as needed -SPO2 monitoring -Pulmonary hygiene GI: NAD, Slight transaminitis -PPI -Regular diet -Trend LFTs : Acute kidney injury, Hyperkalemia, Rhabdomylosis -Nephrology consulted, appreciate recommendations -Monitor intake and output -Dialysis catheter placed 11/02, received emergent hemodialysis -HD per nephrology -Urine lites pending -Renally dose medications -Avoid nephrotoxic medications -Renal ultrasound pending -MIVF -Trend CK and BMP ID: NAD -Monitor WBC and temperature curve Endo: NAD -Avoid hypoglycemia Heme: Leukocytosis, thrombocytopenia -Trend CBC -Transfuse hemoglobin less than 7 -SCDs to BLE while in bed The high probability of a clinically significant, sudden or life threatening deterioration of the [renal] system(s) required my full and direct attention, intervention and personal management. The aggregate critical care time was [60] minutes. This time is in addition to time spent performing reported procedures but includes the following: [x] Data Review and interpretation [x] Patient assessment and monitoring of vital signs [x] Documentation [x] Medication orders and management Disposition Plan: imcu Total Time Spent with Patient (Minutes): 60 History Interval history: This is a 25-year-old male with polysubstance abuse (EtOH, heroin, nicotine) who was recently discharged from substance abuse program who presented the emergency department via EMS on 11/01 with possible overdose of unknown illicit drug after being found unresponsive with his face down and pinpoint pupils by friend. He was given 4 rounds of Narcan by EMS and he became severely agitated and was given Haldol, Benadryl, Ativan and Geodon. On presentation to the [facility] department patient was hypotensive and tachycardic. Lab work showed hyperkalemia at 8.2 and acute kidney injury with a BUN/creatinine of 20/3.1, and slight transaminitis. UDS was positive for cocaine and amphetamines. Patient was admitted to the hospitalist service with consults to nephrology and [facility]. Hospital course to date: 11/02: Patient received Vas-Cath overnight and dialysis. This morning potassium and renal function is much improved. Patient was noted to have elevated CK of 39,867 and will continue on IV fluids. Patient will be transferred from ICU to [facility]. Hospitalist Physical - Constitutional Vitals: Temp Pulse Resp BP Pulse Ox 97.9 F 110 H 28 H 139/79 91 11/02/21 04:07 11/02/21 14:00 11/02/21 14:00 11/02/21 14:00 11/02/21 14:00 General appearance: Present: no acute distress, well-nourished HEART Score - HEART Score Troponin: Troponin T 0.058 ng/mL (0.00-0.029) H 11/01/21 18:07 Results - Labs CBC & Chem 7: 11/02/21 04:33 11/02/21 04:00 Labs: Laboratory Last Values WBC 13.0 K/mm3 (4.5-11.0) H 11/02/21 04:33 RBC 4.41 M/mm3 (3.65-5.03) 11/02/21 04:33 Hgb 13.1 gm/dl (11.8-15.2) D 11/02/21 04:33 Hct 38.6 % (35.5-45.6) D 11/02/21 04:33 MCV 88 fl (84-94) 11/02/21 04:33 MCH 30 pg (28-32) 11/02/21 04:33 MCHC 34 % (32-34) 11/02/21 04:33 RDW 14.6 % (13.2-15.2) 11/02/21 04:33 Plt Count 137 K/mm3 (140-440) L 11/02/21 04:33 Lymph % (Auto) 7.5 % (13.4-35.0) L 11/02/21 04:33 [place] % (Auto) 3.5 % (0.0-7.3) 11/02/21 04:33 Eos % (Auto) 0.0 % (0.0-4.3) 11/02/21 04:33 Baso % (Auto) 0.4 % (0.0-1.8) 11/02/21 04:33 Lymph # (Auto) 1.0 K/mm3 (1.2-5.4) L 11/02/21 04:33 [place] # (Auto) 0.5 K/mm3 (0.0-0.8) 11/02/21 04:33 Eos # (Auto) 0.0 K/mm3 (0.0-0.4) 11/02/21 04:33 Baso # (Auto) 0.1 K/mm3 (0.0-0.1) 11/02/21 04:33 Seg Neutrophils % 88.6 % (40.0-70.0) H 11/02/21 04:33 Seg Neutrophils # 11.6 K/mm3 (1.8-7.7) H 11/02/21 04:33 PT 13.1 Sec. (12.2-14.9) 11/01/21 18:07 INR 0.88 (0.87-1.13) 11/01/21 18:07 ABG pH 7.293 pH Units (7.350-7.450) L 11/01/21 23:57 ABG pCO2 43.5 mm Hg 11/01/21 23:57 ABG pO2 77.1 mm Hg (80.0-90.0) L 11/01/21 23:57 ABG HCO3 20.6 mmol/L (20.0-26.0) 11/01/21 23:57 ABG O2 Saturation 95.3 % (95.0-99.0) 11/01/21 23:57 ABG O2 Content 18.8 (0.0-44) 11/01/21 23:57 ABG Base Excess -5.8 mmol/L (-2.0-3.0) L 11/01/21 23:57 ABG Hemoglobin 14.3 gm/dl (14.0-18.0) 11/01/21 23:57 ABG Carboxyhemoglobin 1.7 % (0.0-5.0) 11/01/21 23:57 ABG Methemoglobin 0.5 % (0.0-1.5) 11/01/21 23:57 Oxyhemoglobin 93.2 % (95.0-99.0) L 11/01/21 23:57 FiO2 100 % 11/01/21 23:57 Sodium 138 mmol/L (137-145) 11/02/21 04:00 Potassium 3.7 mmol/L (3.6-5.0) D 11/02/21 04:00 Chloride 99.5 mmol/L (98-107) 11/02/21 04:00 Carbon Dioxide 27 mmol/L (22-30) 11/02/21 04:00 Anion Gap 15 mmol/L 11/02/21 04:00 BUN 10 mg/dL (9-20) 11/02/21 04:00 Creatinine 1.1 mg/dL (0.8-1.3) D 11/02/21 04:00 Estimated GFR > 60 ml/min 11/02/21 04:00 BUN/Creatinine Ratio 9 % 11/02/21 04:00 Glucose 105 mg/dL (75-100) H 11/02/21 04:00 Calcium 7.4 mg/dL (8.4-10.2) L 11/02/21 04:00 Total Bilirubin 0.60 mg/dL (0.1-1.2) 11/01/21 18:07 AST 100 units/L (5-40) H 11/01/21 18:07 ALT 58 units/L (7-56) H 11/01/21 18:07 Alkaline Phosphatase 84 units/L (35-129) 11/01/21 18:07 Total Creatine Kinase 07332 units/L (55-170) H 11/02/21 05:49 Troponin T 0.058 ng/mL (0.00-0.029) H 11/01/21 18:07 Total Protein 7.7 g/dL (6.3-8.2) 11/01/21 18:07 Albumin 5.1 g/dL (3.9-5) H 11/01/21 18:07 Albumin/Globulin Ratio 2.0 % 11/01/21 18:07 Triglycerides 144 mg/dL (2-149) 11/01/21 18:07 Cholesterol 211 mg/dL (50-199) H 11/01/21 18:07 LDL Cholesterol Direct 132 mg/dL (50-130) H 11/01/21 18:07 HDL Cholesterol 57 mg/dL (40-59) 11/01/21 18:07 Cholesterol/HDL Ratio 3.70 % 11/01/21 18:07 TSH 0.808 mlU/mL (0.270-4.200) 11/01/21 18:07 Free T4 1.47 ng/dL (0.76-1.46) H 11/01/21 18:07 Urine Opiates Screen Presumptive negative 11/01/21 Unknown Urine Methadone Screen Presumptive negative 11/01/21 Unknown Ur Barbiturates Screen Presumptive negative 11/01/21 Unknown Ur Phencyclidine Scrn Presumptive negative 11/01/21 Unknown Ur Amphetamines Screen Presumptive positive 11/01/21 Unknown U Benzodiazepines Scrn Presumptive negative 11/01/21 Unknown Urine Cocaine Screen Presumptive positive 11/01/21 Unknown U Marijuana (THC) Screen Presumptive negative 11/01/21 Unknown Drugs of Abuse Note Disclamer 11/01/21 Unknown Hepatitis A IgM Ab Non-reactive (NonReactive) 11/02/21 01:50 Hep Bs Antigen Non-reactive (Negative) 11/02/21 01:50 Hep B Core IgM Ab Non-reactive (NonReactive) 11/02/21 01:50 Hepatitis C Antibody Non-reactive (NonReactive) 11/02/21 01:50 Active Medications - Current Medications Current Medications: Generic Name Dose Route Start Last Admin Trade Name Freq PRN Reason Stop Dose Admin Acetaminophen 650 mg 11/01/21 23:24 Acetaminophen 325 Mg Tab PO Q4H PRN Pain MILD(1-3)/Fever >100.5/WALKER Albuterol/Ipratropium 1 ampul 11/02/21 02:00 11/02/21 09:04 Ipratropium/Albuterol Sulfate 3 Ml Ampul.Neb IH 1 ampul Q6HRT ANA M Administration Famotidine 20 mg 11/02/21 10:00 11/02/21 09:40 Famotidine 20 Mg Tab PO 20 mg BID ANA M Administration Heparin Sodium (Porcine) 5,000 unit 11/02/21 10:00 11/02/21 09:40 Heparin 5,000 Unit/1 Ml Vial SUB-Q 5,000 unit Q12HR ANA M Administration Sodium Chloride 1,000 mls @ 125 mls/hr 11/01/21 23:45 11/02/21 02:02 Nacl 0.9% 1000 Ml IV 125 mls/hr DIRECT ANA M Administration Lorazepam 2 mg 11/02/21 14:08 Lorazepam 2 Mg/Ml Vial IV Q4H PRN Agitation Melatonin 10 mg 11/02/21 22:00 Melatonin 5 Mg Tab PO QHS PRN Sleep Nicotine 14 mg 11/02/21 10:00 11/02/21 10:19 Nicotine 14 Mg/24 Hr Patch TD 14 mg QDAY ANA M Administration Ondansetron HCl 4 mg 11/01/21 23:24 Ondansetron 4 Mg/2 Ml Inj IV Q8H PRN Nausea And Vomiting Sodium Chloride 10 ml 11/02/21 10:00 11/02/21 09:40 Sodium Chloride 0.9% 10 Ml Flush Syringe IV 10 ml BID ANA M Administration Sodium Chloride 10 ml 11/01/21 23:24 Sodium Chloride 0.9% 10 Ml Flush Syringe IV PRN PRN LINE FLUSH
[2021-11-02 16:03] LABS: Color,Urine Amber (Yellow)
[2021-11-02 16:04] LABS: Bilirubin,Urine Negative (Negative); Blood,Urine 2+ (Negative)
[2021-11-02 16:05] LABS: Creatinine,Urine 57.5 mg/dL (0.1-20.0); Protein/Creatinine Ratio,Urine 0.49
[2021-11-02 17:15] LABS: Bacteria,Urine 2+ /HPF (Negative)
[2021-11-02] MEDS ORDERED: MELATONIN 5 MG TAB PO PRN (22:00)
[2021-11-03] MEDS: SODIUM CHLORIDE 0.9% 1000 ML 1,000 ML IV SCH ×2 (01:01→08:26)
[2021-11-03 04:53] LABS: Hematocrit 39.9 % (35.5-45.6); Hemoglobin 13.5 gm/dl (11.8-15.2); Mean Corpuscular HGB Conc 34 % (32-34); Mean Corpuscular Volume 89 fl (84-94); Platelet Count 135 K/mm3 (140-440); Red Blood Count 4.48 M/mm3 (3.65-5.03); Red Cell Distribution Width 14.4 % (13.2-15.2)
[2021-11-03 05:19] LABS: Alanine Aminotransferase 157 units/L (7-56); Albumin 3.1 g/dL (3.9-5); BUN/Creatinine Ratio 7; Bilirubin,Direct 0.2 mg/dL (0-0.2); Blood Urea Nitrogen 7 mg/dL (9-20); Calcium 8.1 mg/dL (8.4-10.2); Hemolysis Index 18
[2021-11-03] MEDS ORDERED: LORazepam 2 MG/ML VIAL IV PRN ×2 (08:28)
[2021-11-03] MEDS ORDERED: SODIUM PHOSPHATE 45 MMOL in SODIUM CHLORIDE 0.9% 500 ML 500 ML IV ONE (08:30)
[2021-11-03] MEDS ORDERED: MAGNESIUM SULFATE 4 GM/100 ML BAG IV ONE (08:30)
--- NOTE | 2021-11-03 08:35 | Progress Note ---
Assessment and Plan Acute Renal Failure likely secondary to drug abuse Drug Abuse Hyperkalemia Rhabdomyolysis Plan: LIT has resolved K is normal CK is trending down excellent UOP cont IVF for elevated CK likely vascath to be removed tomorrow Drug abuse (Heroin) and Smoking-will need counseling about cessation of both Renally dose medications Avoid nephrotoxic agents Continue to monitor electrolytes and renal function Subjective Date of service: 11/03/21 Interval history: in IMCU, making urine Objective - Vital Signs Vital signs: Vital Signs - 12hr 11/02/21 11/02/21 11/02/21 21:00 22:00 23:00 Temperature Pulse Rate 111 H 103 H 104 H Pulse Rate [ From Monitor] Respiratory 26 H 34 H 26 H Rate Blood Pressure 134/86 133/75 124/79 O2 Sat by Pulse 92 96 97 Oximetry 11/02/21 11/03/21 11/03/21 23:11 00:00 01:00 Temperature 100.6 F H Pulse Rate 105 H 112 H 108 H Pulse Rate [ 103 H From Monitor] Respiratory 25 H 24 32 H Rate Blood Pressure 124/79 140/85 126/79 O2 Sat by Pulse 96 94 97 Oximetry 11/03/21 11/03/21 11/03/21 02:01 03:00 04:00 Temperature 99.1 F Pulse Rate 109 H 105 H 102 H Pulse Rate [ 103 H From Monitor] Respiratory 26 H 35 H 38 H Rate Blood Pressure 138/88 137/84 129/81 O2 Sat by Pulse 98 93 97 Oximetry 11/03/21 11/03/21 11/03/21 05:00 06:00 07:00 Temperature Pulse Rate 100 H 93 H Pulse Rate [ From Monitor] Respiratory 28 H 30 H Rate Blood Pressure 120/75 123/82 120/80 O2 Sat by Pulse 91 97 97 Oximetry 11/03/21 08:01 Temperature Pulse Rate 94 H Pulse Rate [ From Monitor] Respiratory 32 H Rate Blood Pressure 120/80 O2 Sat by Pulse 98 Oximetry - Lab 11/03/21 04:30 11/03/21 04:30 Most recent lab results ABG pH 7.293 pH Units (7.350-7.450) L 11/01/21 23:57 ABG pCO2 43.5 mm Hg 11/01/21 23:57 ABG pO2 77.1 mm Hg (80.0-90.0) L 11/01/21 23:57 ABG HCO3 20.6 mmol/L (20.0-26.0) 11/01/21 23:57 ABG O2 Saturation 95.3 % (95.0-99.0) 11/01/21 23:57 Calcium 8.1 mg/dL (8.4-10.2) L 11/03/21 04:30 Phosphorus 1.30 mg/dL (2.5-4.5) L 11/03/21 04:30 Magnesium 1.60 mg/dL (1.7-2.3) L 11/03/21 04:30 Urine Creatinine 57.5 mg/dL (0.1-20.0) H 11/02/21 13:36 Urine Sodium 68 mmol/L 11/02/21 13:36 Urine Total Protein 28 mg/dL (5-11.8) H 11/02/21 13:36 Medications & Allergies - Medications Allergies/Adverse Reactions: Allergies No Known Allergies Allergy (Unverified 11/02/21 09:24) Home Medications: Home Medications Medication Instructions Recorded Confirmed Last Taken Type No Known Home Medications [No 11/02/21 11/02/21 Unknown History Reported Home Medications] Active Medications: Generic Name Dose Route Start Last Admin Trade Name Freq PRN Reason Stop Dose Admin Acetaminophen 650 mg 11/01/21 23:24 Acetaminophen 325 Mg Tab PO Q4H PRN Pain MILD(1-3)/Fever >100.5/WALKER Famotidine 20 mg 11/02/21 10:00 11/02/21 21:01 Famotidine 20 Mg Tab PO 20 mg BID ANA M Administration Heparin Sodium (Porcine) 5,000 unit 11/02/21 10:00 11/02/21 21:01 Heparin 5,000 Unit/1 Ml Vial SUB-Q 5,000 unit Q12HR ANA M Administration Sodium Chloride 1,000 mls @ 125 mls/hr 11/01/21 23:45 11/03/21 08:26 Nacl 0.9% 1000 Ml IV 125 mls/hr DIRECT ANA M Administration Magnesium Sulfate 4 gm in 100 mls @ 25 mls/hr 11/03/21 08:30 11/03/21 08:26 Magnesium Sulfate 4gm/100ml IV 11/03/21 12:29 25 mls/hr ONCE ONE Administration Sodium Phosphate 45 mmol/ 515 mls @ 84 mls/hr 11/03/21 08:30 Sodium Chloride IV 11/03/21 14:37 ONCE ONE Lorazepam 2 mg 11/03/21 08:28 Lorazepam 2 Mg/Ml Vial IV Q1HR PRN [place]-Ar 8-15 Melatonin 10 mg 11/02/21 22:00 Melatonin 5 Mg Tab PO QHS PRN Sleep Nicotine 14 mg 11/02/21 10:00 11/02/21 10:19 Nicotine 14 Mg/24 Hr Patch TD 14 mg QDAY ANA M Administration Ondansetron HCl 4 mg 11/01/21 23:24 Ondansetron 4 Mg/2 Ml Inj IV Q8H PRN Nausea And Vomiting Sodium Chloride 10 ml 11/02/21 10:00 11/02/21 21:02 Sodium Chloride 0.9% 10 Ml Flush Syringe IV 10 ml BID ANA M Administration Sodium Chloride 10 ml 11/01/21 23:24 Sodium Chloride 0.9% 10 Ml Flush Syringe IV PRN PRN LINE FLUSH
--- NOTE | 2021-11-03 09:26 | XRay Report ---
CHEST - 1 VIEW 0738 hours INDICATION: increase RR COMPARISON: Yesterday FINDINGS: Support devices: Stable support device positioning. Heart: Stable cardiomediastinal silhouette. Lungs/pleura: There is better inspiration with decreased bilateral congestive changes or pulmonary o pacities. No pleural effusion or pneumothorax. Additional findings: None. IMPRESSION: Mild improvement as described. Signer Name: Delta Bueno Jr, MD Signed: 11/03/2021 9:22 AM Workstation Name: [id number]
[2021-11-03] MEDS: HEPARIN 5,000 UNIT/1 ML VIAL SUB-Q SCH ×2 (10:25→21:59)
[2021-11-03] MEDS: NICOTINE 14 MG/24 HR PATCH TD SCH (10:25)
[2021-11-03] MEDS: FAMOTIDINE 20 MG TAB PO SCH ×2 (10:25→22:00)
--- NOTE | 2021-11-03 10:57 | Consultation ---
History of Present Illness - Reason for Consult Consult date: 11/03/21 Reason for consult: Substance abuse with relapse - Chief Complaint Chief complaint: Drug overdose - History of Present Psychiatric Illness HPI: 25 yo M brought in by EMS with possible overdose on unknown illicit drug. Pt's friends called for unresponsiveness and he was found face down with pinpointed pupil. He was given 4 round of narcan and he started screaming even while he was been wheeled into the ED. He continue to scream loudly until he was given Haldol, Benadryl and ativan with Geodon. No other modifying or associated factor reported. The patient is a 25 year old with history Opioids abuse who presented to the ED post overdose. The patient was seen today. He is calm, alert and oriented x4. He reports ongoing Heroine use x 2 years; states he was sober for 3 months and recently relapsed 2 days ago. He states he normally consumes about 1 gram daily but reports not knowing how much he consumed that resulted in this admission " I had a complete blackout." He reports history of psychiatric inpatient detoxification and rehab admissions. He denies any current suicidal ideation and denies hallucinations. He denies current cravings for heroine. PAST PSYCHIATRIC HISTORY Diagnoses: Opioid abuse Suicide attempts or Self-harm behavior: Denies Prior psychiatric hospitalizations: Yes Substance Abuse history: Opioids Previous psychiatric medications tried: Denies Outpatient treatment: Denies PAST MEDICAL HISTORY: None reported Family Psychiatric History: None reported or documented SOCIAL HISTORY Marital Status: single Living Arrangements: Lives with father Employment Status: unknown Access to guns/weapons: Denies Education:2 year college History of Abuse: No Legal History: Unknown REVIEW OF SYSTEMS Constitutional: Negative for weight loss ENT: Negative for stridor Respiratory: Negative for cough or hemoptysis All other systems reviewed and are negative MENTAL STATUS EXAMINATION General Appearance and Behavior: Age appropriate, good hygiene, wearing appropriate clothes, good eye contact, calm, cooperative Cooperation: Participating/engaged Psychomotor Behavior: Psychomotor normal Mood: Calm Affect and affective range: congruent with stated mood Thought Process: goal directed Thought Content: Reality Oriented Speech: Normal tone and pace Suicidal Ideation: Denies Homicidal Ideation: Denies Hallucinations: Denies Delusions: None elicited Impulse Control: Normal Insight and Judgment: Limited insight and judgment Memory: Normal Attention: Attentive Orientation: Alert, oriented Assessment and Plan Opioid use disorder, severe Treatment Plan Continue home Meds Clonidine 0.1mg po Q6hrs PRN- Please use with COWS score. Risks, benefits and alternatives of medications discussed with the patient, questions answered and consent obtained from patient. PSYCHOTHERAPY: Supportive psychotherapy provided MEDICAL: Per primary team DELIRIUM PRECAUTIONS: Please re-orient patient frequently, keep lights on during the day, and minimize benzodiazepines and opiates as these medications could worsen patient's confusion. 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 Will follow for medication management. Thank you for the consult. Please contact with any questions and/or concerns. Case staffed with Dr. Teixeira Medications and Allergies Medications and Allergies Allergies Allergy/AdvReac Type Severity Reaction Status Date / Time No Known Allergies Allergy Unverified 11/02/21 09:24 Home Medications Medication Instructions Recorded Confirmed Last Taken Type No Known Home Medications [No 11/02/21 11/02/21 Unknown History Reported Home Medications] Active Meds: Active Medications Acetaminophen (Acetaminophen 325 Mg Tab) 650 mg PO Q4H PRN PRN Reason: Pain MILD(1-3)/Fever >100.5/WALKER Famotidine (Famotidine 20 Mg Tab) 20 mg PO BID ANA M Last Admin: 11/03/21 10:25 Dose: 20 mg Heparin Sodium (Porcine) (Heparin 5,000 Unit/1 Ml Vial) 5,000 unit SUB-Q Q12HR ANA M Last Admin: 11/03/21 10:25 Dose: 5,000 unit Sodium Chloride (Nacl 0.9% 1000 Ml) 1,000 mls @ 125 mls/hr IV DIRECT ANA M Last Admin: 11/03/21 08:26 Dose: 125 mls/hr Magnesium Sulfate (Magnesium Sulfate 4gm/100ml) 4 gm in 100 mls @ 25 mls/hr IV ONCE ONE Stop: 11/03/21 12:29 Last Admin: 11/03/21 08:26 Dose: 25 mls/hr Sodium Phosphate 45 mmol/ (Sodium Chloride) 515 mls @ 84 mls/hr IV ONCE ONE Stop: 11/03/21 14:37 Last Admin: 11/03/21 10:25 Dose: 84 mls/hr Lorazepam (Lorazepam 2 Mg/Ml Vial) 2 mg IV Q1HR PRN PRN Reason: CIWA-Ar 8-15 Melatonin (Melatonin 5 Mg Tab) 10 mg PO QHS PRN PRN Reason: Sleep Nicotine (Nicotine 14 Mg/24 Hr Patch) 14 mg TD QDAY [facility] Last Admin: 11/03/21 10:25 Dose: 14 mg Ondansetron HCl (Ondansetron 4 Mg/2 Ml Inj) 4 mg IV Q8H PRN PRN Reason: Nausea And Vomiting Sodium Chloride (Sodium Chloride 0.9% 10 Ml Flush Syringe) 10 ml IV BID [facility] Last Admin: 11/03/21 10:25 Dose: 10 ml Sodium Chloride (Sodium Chloride 0.9% 10 Ml Flush Syringe) 10 ml IV PRN PRN PRN Reason: LINE FLUSH Mental Status Exam - Vital signs Last Vital Signs Temp 99.1 F 11/03/21 04:00 Pulse 94 H 11/03/21 08:01 Resp 32 H 11/03/21 08:01 BP 120/80 11/03/21 08:01 Pulse Ox 98 11/03/21 10:35 Results Result Diagrams: 11/03/21 04:30 11/03/21 04:30 Abnormal lab results 11/02/21 11/03/21 11/03/21 Range/Units 13:36 04:30 04:30 WBC 13.6 H (4.5-11.0) K/mm3 Plt Count 135 L (140-440) K/mm3 BUN 7 L (9-20) mg/dL Glucose 127 H (75-100) mg/dL Calcium 8.1 L (8.4-10.2) mg/dL Phosphorus 1.30 L (2.5-4.5) mg/dL Magnesium 1.60 L (1.7-2.3) mg/dL AST 657 H (5-40) units/L ALT 157 H (7-56) units/L Total Creatine Kinase 53041 H (55-170) units/L Total Protein 5.7 L D (6.3-8.2) g/dL Albumin 3.1 L (3.9-5) g/dL Urine Creatinine 57.5 H (0.1-20.0) mg/dL Urine Total Protein 28 H (5-11.8) mg/dL All other labs normal.
[2021-11-03] MEDS ORDERED: cloNIDine 0.1 MG TAB PO PRN (12:00)
--- NOTE | 2021-11-03 15:12 | Progress Note ---
Assessment and Plan Assessment and plan: This is a 25-year-old male with polysubstance abuse admitted with acute kidney injury, hyperkalemia with overdose of possible cocaine/phentermine Neuro: Polysubstance abuse (h/o cocaine, etoh and nicotine) -UDS positive for cocaine and amphetamines. -EtOH blood level <0.01 -Given Haldol, Benadryl, Ativan and Geodon in the emergency department for severe agitation -Reorientation as needed -Maintain sleep-wake cycle -Patient states he takes trazodone nightly -Started on melatonin as needed -Psych consulted, appreciate recommendations -started on clonidine -Per family patient was recently discharged from substance abuse program -[facility]WA protocol -PT consulted, appreciate recommendations -recommend HHPT Cardiac: ST, HLD -Blood pressure monitoring per protocol -Encourage lifestyle modifications Respiratory: Acute hypoxic respiratory failure, Current nicotine abuse (1ppd) -CCM signed off -Nicoderm TD -Nicotine abuse cessation counseling provided -Supplemental oxygen as needed -SPO2 monitoring -Pulmonary hygiene GI: Transaminitis -PPI -Regular diet -Trend LFTs : Acute kidney injury (resolved), Hyperkalemia (resolved) , Rhabdomylosis -Nephrology consulted, appreciate recommendations -Monitor intake and output -Dialysis catheter placed 11/02, received emergent hemodialysis -HD per nephrology -Renal ultrasound shows increased bilateral renal cortical echotexture consistent with provided history of LIT. -FeNa 1% -Renally dose medications -Avoid nephrotoxic medications -MIVF -Trend CK and BMP ID: NAD -COVID 19 PCR (-) -Monitor WBC and temperature curve Endo: NAD -Avoid hypoglycemia Heme: Leukocytosis, thrombocytopenia -Trend CBC -Transfuse hemoglobin less than 7 -SCDs to BLE while in bed The high probability of a clinically significant, sudden or life threatening deterioration of the [renal] system(s) required my full and direct attention, intervention and personal management. The aggregate critical care time was [60] minutes. This time is in addition to time spent performing reported procedures but includes the following: [x] Data Review and interpretation [x] Patient assessment and monitoring of vital signs [x] Documentation [x] Medication orders and management Disposition Plan: transfer to floor Total Time Spent with Patient (Minutes): 60 History Interval history: This is a 25-year-old male with polysubstance abuse (EtOH, heroin, nicotine) who was recently discharged from substance abuse program who presented the emergency department via EMS on 11/01 with possible overdose of unknown illicit drug after being found unresponsive with his face down and pinpoint pupils by friend. He was given 4 rounds of Narcan by EMS and he became severely agitated and was given Haldol, Benadryl, Ativan and Geodon. On presentation to the emergency department patient was hypotensive and tachycardic. Lab work showed hyperkalemia at 8.2 and acute kidney injury with a BUN/creatinine of 20/3.1, and slight transaminitis. UDS was positive for cocaine and amphetamines. Patient was admitted to the hospitalist service with consults to nephrology and CCM. Hospital course to date: 11/02: Patient received Vas-Cath overnight and dialysis. This morning potassium and renal function is much improved. Patient was noted to have elevated CK of 39,867 and will continue on IV fluids. Patient will be transferred from ICU to IMCU. 11/03: Psych added clonidine. COVID PCR (-). Transfer to [place] [id number] [place] [address]. Will continue IVF. Hospitalist Physical - Constitutional Vitals: Temp Pulse Resp BP Pulse Ox 99.1 F 97 H 24 124/75 94 11/03/21 04:00 11/03/21 14:00 11/03/21 14:00 11/03/21 14:00 11/03/21 14:00 General appearance: Present: no acute distress, well-nourished - EENT Eyes: Present: PERRL, EOM intact ENT: hearing intact, clear oral mucosa, dentition normal - Neck Neck: Present: normal ROM - Respiratory Respiratory effort: normal Respiratory: bilateral: CTA - Cardiovascular Rhythm: regular Heart Sounds: Present: S1 & S2. Absent: systolic murmur, diastolic murmur - Extremities Extremities: no ischemia, pulses intact, pulses symmetrical, No edema, normal temperature, normal color, Full ROM Peripheral Pulses: within normal limits - Abdominal General gastrointestinal: soft, non-tender, non-distended, normal bowel sounds - Integumentary Integumentary: Present: warm, dry - Psychiatric Psychiatric: cooperative - Neurologic Neurologic: CNII-XII intact, no focal deficits, moves all extremities - Allied Health Allied health notes reviewed: nursing, RT, social work HEART Score - HEART Score Troponin: Troponin T 0.058 ng/mL (0.00-0.029) H 11/01/21 18:07 Results - Labs CBC & Chem 7: 11/03/21 04:30 11/03/21 04:30 Labs: Laboratory Last Values WBC 13.6 K/mm3 (4.5-11.0) H 11/03/21 04:30 RBC 4.48 M/mm3 (3.65-5.03) 11/03/21 04:30 Hgb 13.5 gm/dl (11.8-15.2) 11/03/21 04:30 Hct 39.9 % (35.5-45.6) 11/03/21 04:30 MCV 89 fl (84-94) 11/03/21 04:30 MCH 30 pg (28-32) 11/03/21 04:30 MCHC 34 % (32-34) 11/03/21 04:30 RDW 14.4 % (13.2-15.2) 11/03/21 04:30 Plt Count 135 K/mm3 (140-440) L 11/03/21 04:30 Lymph % (Auto) 7.5 % (13.4-35.0) L 11/02/21 04:33 [place] % (Auto) 3.5 % (0.0-7.3) 11/02/21 04:33 Eos % (Auto) 0.0 % (0.0-4.3) 11/02/21 04:33 Baso % (Auto) 0.4 % (0.0-1.8) 11/02/21 04:33 Lymph # (Auto) 1.0 K/mm3 (1.2-5.4) L 11/02/21 04:33 [place] # (Auto) 0.5 K/mm3 (0.0-0.8) 11/02/21 04:33 Eos # (Auto) 0.0 K/mm3 (0.0-0.4) 11/02/21 04:33 Baso # (Auto) 0.1 K/mm3 (0.0-0.1) 11/02/21 04:33 Seg Neutrophils % 88.6 % (40.0-70.0) H 11/02/21 04:33 Seg Neutrophils # 11.6 K/mm3 (1.8-7.7) H 11/02/21 04:33 PT 13.1 Sec. (12.2-14.9) 11/01/21 18:07 INR 0.88 (0.87-1.13) 11/01/21 18:07 ABG pH 7.293 pH Units (7.350-7.450) L 11/01/21 23:57 ABG pCO2 43.5 mm Hg 11/01/21 23:57 ABG pO2 77.1 mm Hg (80.0-90.0) L 11/01/21 23:57 ABG HCO3 20.6 mmol/L (20.0-26.0) 11/01/21 23:57 ABG O2 Saturation 95.3 % (95.0-99.0) 11/01/21 23:57 ABG O2 Content 18.8 (0.0-44) 11/01/21 23:57 ABG Base Excess -5.8 mmol/L (-2.0-3.0) L 11/01/21 23:57 ABG Hemoglobin 14.3 gm/dl (14.0-18.0) 11/01/21 23:57 ABG Carboxyhemoglobin 1.7 % (0.0-5.0) 11/01/21 23:57 ABG Methemoglobin 0.5 % (0.0-1.5) 11/01/21 23:57 Oxyhemoglobin 93.2 % (95.0-99.0) L 11/01/21 23:57 FiO2 100 % 11/01/21 23:57 Sodium 140 mmol/L (137-145) 11/03/21 04:30 Potassium 3.8 mmol/L (3.6-5.0) 11/03/21 04:30 Chloride 104.5 mmol/L (98-107) 11/03/21 04:30 Carbon Dioxide 27 mmol/L (22-30) 11/03/21 04:30 Anion Gap 12 mmol/L 11/03/21 04:30 BUN 7 mg/dL (9-20) L 11/03/21 04:30 Creatinine 1.0 mg/dL (0.8-1.3) 11/03/21 04:30 Estimated GFR > 60 ml/min 11/03/21 04:30 BUN/Creatinine Ratio 7 % 11/03/21 04:30 Glucose 127 mg/dL (75-100) H 11/03/21 04:30 Calcium 8.1 mg/dL (8.4-10.2) L 11/03/21 04:30 Phosphorus 1.30 mg/dL (2.5-4.5) L 11/03/21 04:30 Magnesium 1.60 mg/dL (1.7-2.3) L 11/03/21 04:30 Total Bilirubin 0.60 mg/dL (0.1-1.2) 11/03/21 04:30 Direct Bilirubin 0.2 mg/dL (0-0.2) 11/03/21 04:30 Indirect Bilirubin 0.4 mg/dL 11/03/21 04:30 AST 657 units/L (5-40) H 11/03/21 04:30 ALT 157 units/L (7-56) H 11/03/21 04:30 Alkaline Phosphatase 64 units/L (35-129) 11/03/21 04:30 Total Creatine Kinase 95537 units/L (55-170) H 11/03/21 04:30 Troponin T 0.058 ng/mL (0.00-0.029) H 11/01/21 18:07 Total Protein 5.7 g/dL (6.3-8.2) L D 11/03/21 04:30 Albumin 3.1 g/dL (3.9-5) L 11/03/21 04:30 Albumin/Globulin Ratio 1.2 % 11/03/21 04:30 Triglycerides 144 mg/dL (2-149) 11/01/21 18:07 Cholesterol 211 mg/dL (50-199) H 11/01/21 18:07 LDL Cholesterol Direct 132 mg/dL (50-130) H 11/01/21 18:07 HDL Cholesterol 57 mg/dL (40-59) 11/01/21 18:07 Cholesterol/HDL Ratio 3.70 % 11/01/21 18:07 TSH 0.808 mlU/mL (0.270-4.200) 11/01/21 18:07 Free T4 1.47 ng/dL (0.76-1.46) H 11/01/21 18:07 Urine Color Sheryl (Yellow) 11/02/21 13:37 Urine Turbidity Clear (Clear) 11/02/21 13:37 Urine pH 7.0 (5.0-7.0) 11/02/21 13:37 Ur Specific [place] 1.020 (1.003-1.030) 11/02/21 13:37 Urine Protein 30 mg/dl mg/dL (Negative) 11/02/21 13:37 Urine Glucose (UA) Negative mg/dL (Negative) 11/02/21 13:37 Urine Ketones Negative mg/dL (Negative) 11/02/21 13:37 Urine Blood 2+ (Negative) 11/02/21 13:37 Urine Nitrite Negative (Negative) 11/02/21 13:37 Urine Bilirubin Negative (Negative) 11/02/21 13:37 Urine Urobilinogen 0.0 mg/dL (<2.0) 11/02/21 13:37 Ur Leukocyte Esterase 2+ (Negative) 11/02/21 13:37 Urine WBC (Auto) 0.0 /HPF (0.0-6.0) 11/02/21 13:37 Urine RBC (Auto) 2.0 /HPF (0.0-6.0) 11/02/21 13:37 U Epithel Cells (Auto) 5.0 /HPF (0-13.0) 11/02/21 13:37 Urine Bacteria (Auto) 2+ /HPF (Negative) 11/02/21 13:37 Urine Eosinophils None seen (None Seen) 11/02/21 13:36 Urine Creatinine 57.5 mg/dL (0.1-20.0) H 11/02/21 13:36 Protein/Creatinin Ratio 0.49 11/02/21 13:36 Urine Sodium 68 mmol/L 11/02/21 13:36 Urine Total Protein 28 mg/dL (5-11.8) H 11/02/21 13:36 Urine Opiates Screen Presumptive negative 11/01/21 Unknown Urine Methadone Screen Presumptive negative 11/01/21 Unknown Ur Barbiturates Screen Presumptive negative 11/01/21 Unknown Ur Phencyclidine Scrn Presumptive negative 11/01/21 Unknown Ur Amphetamines Screen Presumptive positive 11/01/21 Unknown U Benzodiazepines Scrn Presumptive negative 11/01/21 Unknown Urine Cocaine Screen Presumptive positive 11/01/21 Unknown U Marijuana (THC) Screen Presumptive negative 11/01/21 Unknown Drugs of Abuse Note Disclamer 11/01/21 Unknown Plasma/Serum Alcohol < 0.01 % (0-0.07) 11/02/21 14:49 Coronavirus (PCR) Negative (Negative) 11/03/21 Unknown Hepatitis A IgM Ab Non-reactive (NonReactive) 11/02/21 01:50 Hep Bs Antigen Non-reactive (Negative) 11/02/21 01:50 Hep B Core IgM Ab Non-reactive (NonReactive) 11/02/21 01:50 Hepatitis C Antibody Non-reactive (NonReactive) 11/02/21 01:50 Active Medications - Current Medications Current Medications: Generic Name Dose Route Start Last Admin Trade Name Freq PRN Reason Stop Dose Admin Acetaminophen 650 mg 11/01/21 23:24 Acetaminophen 325 Mg Tab PO Q4H PRN Pain MILD(1-3)/Fever >100.5/WALKER Clonidine HCl 0.1 mg 11/03/21 12:00 11/03/21 12:49 Clonidine 0.1 Mg Tab PO 0.1 mg Q6H PRN Administration Agitation Famotidine 20 mg 11/02/21 10:00 11/03/21 10:25 Famotidine 20 Mg Tab PO 20 mg BID ANA M Administration Heparin Sodium (Porcine) 5,000 unit 11/02/21 10:00 11/03/21 10:25 Heparin 5,000 Unit/1 Ml Vial SUB-Q 5,000 unit Q12HR ANA M Administration Sodium Chloride 1,000 mls @ 125 mls/hr 11/01/21 23:45 11/03/21 08:26 Nacl 0.9% 1000 Ml IV 125 mls/hr DIRECT ANA M Administration Lorazepam 2 mg 11/03/21 08:28 Lorazepam 2 Mg/Ml Vial IV Q1HR PRN CIWA-Ar 8-15 Melatonin 10 mg 11/02/21 22:00 Melatonin 5 Mg Tab PO QHS PRN Sleep Nicotine 14 mg 11/02/21 10:00 11/03/21 10:25 Nicotine 14 Mg/24 Hr Patch TD 14 mg QDAY ANA M Administration Ondansetron HCl 4 mg 11/01/21 23:24 Ondansetron 4 Mg/2 Ml Inj IV Q8H PRN Nausea And Vomiting Sodium Chloride 10 ml 11/02/21 10:00 11/03/21 10:25 Sodium Chloride 0.9% 10 Ml Flush Syringe IV 10 ml BID ANA M Administration Sodium Chloride 10 ml 11/01/21 23:24 Sodium Chloride 0.9% 10 Ml Flush Syringe IV PRN PRN LINE FLUSH
[2021-11-03] MEDS ORDERED: ZOLPIDEM 5 MG TAB PO ONE (21:55)
[2021-11-04 05:05] VITALS: BP 126/82
[2021-11-04 05:57] LABS: Red Blood Count 4.58 M/mm3 (3.65-5.03)
[2021-11-04 05:58] LABS: Hematocrit 40.6 % (35.5-45.6); Hemoglobin 13.4 gm/dl (11.8-15.2); Mean Corpuscular HGB Conc 33 % (32-34); Mean Corpuscular Volume 89 fl (84-94); Platelet Count 182 K/mm3 (140-440); Red Cell Distribution Width 14.2 % (13.2-15.2)
[2021-11-04 06:16] LABS: Alanine Aminotransferase 170 units/L (7-56); Albumin 3.2 g/dL (3.9-5); BUN/Creatinine Ratio 8; Blood Urea Nitrogen 7 mg/dL (9-20); Calcium 8.5 mg/dL (8.4-10.2); Hemolysis Index 8
[2021-11-04 06:19] LABS: Bilirubin,Direct < 0.2 mg/dL (0-0.2)
--- NOTE | 2021-11-04 08:29 | Discharge Summary ---
Providers - Providers Date of Admission: 11/01/21 23:24 Date of discharge: 11/04/21 Attending physician: JOANA APONTE MD 11/01/21 23:48 Consult to Physician [CONS] Routine Comment: Dr. Holm spoke with Dr. Saavedra @ [id number] Consulting Provider: HARI SAAVEDRA Physician Instructions: Reason For Exam: lit, high k 11/02/21 12:12 Consult to Mental Health [CONS] Routine Reason For Exam: substance abuse with relapse 11/02/21 19:29 Physical Therapy Evaluation and Treat [CONS] Routine Comment: Reason For Exam: weakness per pt 11/03/21 10:23 Consult to Physician [CONS] Routine Comment: Consulting Provider: ARIEL LEBRON Physician Instructions: Reason For Exam: substance abuse relapse, Primary care physician: NORAH BLANCHARD Hospitalization Reason for admission: acute encephalopathy, drug overdose Condition: Critical Hospital course: History Interval history: This is a 25-year-old male with polysubstance abuse (EtOH, heroin, nicotine) who was recently discharged from substance abuse program who presented the emergency department via EMS on 11/01 with possible overdose of unknown illicit drug after being found unresponsive with his face down and pinpoint pupils by friend. He was given 4 rounds of Narcan by EMS and he became severely agitated and was given Haldol, Benadryl, Ativan and Geodon. On presentation to the emergency department patient was hypotensive and tachycardic. Lab work showed hyperkalemia at 8.2 and acute kidney injury with a BUN/creatinine of 20/3.1, and slight transaminitis. UDS was positive for cocaine and amphetamines. Patient was admitted to the hospitalist service with consults to nephrology and [facility]. Hospital course to date: 11/02: Patient received Vas-Cath overnight and dialysis. This morning potassium and renal function is much improved. Patient was noted to have elevated CK of 39,867 and will continue on IV fluids. Patient will be transferred from ICU to IMCU. 11/03: Psych added clonidine. COVID PCR (-). Transfer [place] [id number] [place] [id number]. Will continue IVF. 11/04: Renal function has recovered. mental status improved and patient appears to be at baseline. Patient states strength has improved. Able to ambulate to restroom. PT recommends home with C. Plan for discharge today. Assessment and plan: This is a 25-year-old male with polysubstance abuse admitted with acute kidney injury, hyperkalemia with overdose of possible cocaine/phentermine Neuro: Polysubstance abuse (h/o cocaine, etoh and nicotine) -UDS positive for cocaine and amphetamines. -EtOH blood level <0.01 -Given Haldol, Benadryl, Ativan and Geodon in the emergency department for severe agitation -Reorientation as needed -Maintain sleep-wake cycle -Patient states he takes trazodone nightly -Started on melatonin as needed -Psych consulted, appreciate recommendations -started on clonidine -Per family patient was recently discharged from substance abuse program -CIWA protocol -PT consulted, appreciate recommendations -recommend HHPT Cardiac: ST, HLD -Blood pressure monitoring per protocol -Encourage lifestyle modifications Respiratory: Acute hypoxic respiratory failure, Current nicotine abuse (1ppd) -CCM signed off -Nicoderm TD -Nicotine abuse cessation counseling provided -Supplemental oxygen as needed -SPO2 monitoring -Pulmonary hygiene GI: Transaminitis -PPI -Regular diet -Trend LFTs : Acute kidney injury (resolved), Hyperkalemia (resolved) , Rhabdomylosis -Nephrology consulted, appreciate recommendations -Monitor intake and output -Dialysis catheter placed 11/02, received emergent hemodialysis -HD per nephrology -Renal ultrasound shows increased bilateral renal cortical echotexture consistent with provided history of LIT. -FeNa 1% -Renally dose medications -Avoid nephrotoxic medications -MIVF -Trend CK and BMP ID: NAD -COVID 19 PCR (-) -Monitor WBC and temperature curve Endo: NAD -Avoid hypoglycemia Heme: Leukocytosis, thrombocytopenia -Trend CBC -Transfuse hemoglobin less than 7 -SCDs to BLE while in bed Disposition: HOME / SELF CARE / HOMELESS Final Discharge Diagnosis (Prints w/discharge instructions): cocaine overdose, amphetamine overdose, hyperkalemia Time spent for discharge: 35 Core Measure Documentation - Palliative Care Palliative Care/ Comfort Measures: Not Applicable - Core Measures Any of the following diagnoses?: none Exam - Physical Exam Narrative exam: General appearance: Present: no acute distress, well-nourished - EENT Eyes: Present: PERRL, EOM intact ENT: hearing intact, clear oral mucosa, dentition normal - Neck Neck: Present: normal ROM - Respiratory Respiratory effort: normal Respiratory: bilateral: CTA - Cardiovascular Rhythm: regular Heart Sounds: Present: S1 & S2. Absent: systolic murmur, diastolic murmur - Extremities Extremities: no ischemia, pulses intact, pulses symmetrical, No edema, normal temperature, normal color, Full ROM Peripheral Pulses: within normal limits - Abdominal General gastrointestinal: soft, non-tender, non-distended, normal bowel sounds - Integumentary Integumentary: Present: warm, dry - Psychiatric Psychiatric: cooperative - Neurologic Neurologic: CNII-XII intact, no focal deficits, moves all extremities - Allied Health Allied health notes reviewed: nursing, RT, social work - Constitutional Vitals: Temp Pulse Resp BP Pulse Ox 98.9 F 83 20 126/82 89 11/04/21 05:01 11/04/21 05:01 11/04/21 05:01 11/04/21 05:01 11/04/21 05:01 Plan Follow up with: NORAH BLANCHARD MD [Primary Care Provider] - 3-5 Days
--- NOTE | 2021-11-04 08:51 | Progress Note ---
Assessment and Plan Acute Renal Failure likely secondary to drug abuse Drug Abuse Hyperkalemia Rhabdomyolysis Plan: LIT has resolved K is normal CK is trending down excellent UOP cont IVF for elevated CK request to remove vascath today will sign off. Subjective Date of service: 11/04/21 Interval history: NAD Objective - Vital Signs Vital signs: Vital Signs - 12hr 11/03/21 11/03/21 11/04/21 22:10 22:21 00:00 Temperature 98.5 F Pulse Rate 76 Respiratory 20 Rate Blood Pressure 146/95 O2 Sat by Pulse 97 96 96 Oximetry 11/04/21 05:01 Temperature 98.9 F Pulse Rate 83 Respiratory 20 Rate Blood Pressure 126/82 O2 Sat by Pulse 89 Oximetry - Lab 11/04/21 05:34 11/04/21 05:34 Most recent lab results ABG pH 7.293 pH Units (7.350-7.450) L 11/01/21 23:57 ABG pCO2 43.5 mm Hg 11/01/21 23:57 ABG pO2 77.1 mm Hg (80.0-90.0) L 11/01/21 23:57 ABG HCO3 20.6 mmol/L (20.0-26.0) 11/01/21 23:57 ABG O2 Saturation 95.3 % (95.0-99.0) 11/01/21 23:57 Calcium 8.5 mg/dL (8.4-10.2) 11/04/21 05:34 Phosphorus 2.30 mg/dL (2.5-4.5) L D 11/04/21 05:34 Magnesium 1.70 mg/dL (1.7-2.3) 11/04/21 05:34 Urine Creatinine 57.5 mg/dL (0.1-20.0) H 11/02/21 13:36 Urine Sodium 68 mmol/L 11/02/21 13:36 Urine Total Protein 28 mg/dL (5-11.8) H 11/02/21 13:36 Medications & Allergies - Medications Allergies/Adverse Reactions: Allergies No Known Allergies Allergy (Unverified 11/02/21 09:24) Home Medications: Home Medications Medication Instructions Recorded Confirmed Last Taken Type No Known Home Medications [No 11/02/21 11/02/21 Unknown History Reported Home Medications] Active Medications: Generic Name Dose Route Start Last Admin Trade Name Freq PRN Reason Stop Dose Admin Acetaminophen 650 mg 11/01/21 23:24 Acetaminophen 325 Mg Tab PO Q4H PRN Pain MILD(1-3)/Fever >100.5/WALKER Clonidine HCl 0.1 mg 11/03/21 12:00 11/03/21 12:49 Clonidine 0.1 Mg Tab PO 0.1 mg Q6H PRN Administration Agitation Famotidine 20 mg 11/02/21 10:00 11/03/21 22:00 Famotidine 20 Mg Tab PO 20 mg BID ANA M Administration Heparin Sodium (Porcine) 5,000 unit 11/02/21 10:00 11/03/21 21:59 Heparin 5,000 Unit/1 Ml Vial SUB-Q 5,000 unit Q12HR ANA M Administration Sodium Chloride 1,000 mls @ 125 mls/hr 11/01/21 23:45 11/03/21 08:26 Nacl 0.9% 1000 Ml IV 125 mls/hr DIRECT ANA M Administration Lorazepam 2 mg 11/03/21 08:28 Lorazepam 2 Mg/Ml Vial IV Q1HR PRN CIWA-Ar 8-15 Melatonin 10 mg 11/02/21 22:00 Melatonin 5 Mg Tab PO QHS PRN Sleep Nicotine 14 mg 11/02/21 10:00 11/03/21 10:25 Nicotine 14 Mg/24 Hr Patch TD 14 mg QDAY ANA M Administration Ondansetron HCl 4 mg 11/01/21 23:24 Ondansetron 4 Mg/2 Ml Inj IV Q8H PRN Nausea And Vomiting Sodium Chloride 10 ml 11/02/21 10:00 11/03/21 22:00 Sodium Chloride 0.9% 10 Ml Flush Syringe IV 10 ml BID ANA M Administration Sodium Chloride 10 ml 11/01/21 23:24 Sodium Chloride 0.9% 10 Ml Flush Syringe IV PRN PRN LINE FLUSH
[2021-11-04] MEDS: NICOTINE 14 MG/24 HR PATCH TD SCH (09:04)
[2021-11-04] MEDS: HEPARIN 5,000 UNIT/1 ML VIAL SUB-Q SCH (09:04)
[2021-11-04] MEDS: FAMOTIDINE 20 MG TAB PO SCH (09:04)
== END 2021-11-04 11:02 | disposition home or self-care (01) | DRG 917 ==
LOC: ED 16:45 → CC1 23:24 → IMCU 11-02 17:44 → 3A 11-03 19:59
PROVIDERS: ADMIT Hospitalist; ATTEND Internal Medicine
PROC: 5A1D70Z Performance of Urinary Filtration, Intermittent, Less than 6 Hours Per Day (ICD-10-PCS; principal; 2021-11-02)
PROC: 02H633Z Insertion of Infusion Device into Right Atrium, Percutaneous Approach (ICD-10-PCS; 2021-11-02)
PROC: B548ZZA Ultrasonography of Superior Vena Cava, Guidance (ICD-10-PCS; 2021-11-02)
DX: T40.5X1A Poisoning by cocaine, accidental (unintentional), initial encounter (principal); J96.01 Acute respiratory failure with hypoxia; N17.9 Acute kidney failure, unspecified; M62.82 Rhabdomyolysis; Z20.822 Contact with and (suspected) exposure to COVID-19; F14.10 Cocaine abuse, uncomplicated; F10.129 Alcohol abuse with intoxication, unspecified; E87.5 Hyperkalemia; F17.200 Nicotine dependence, unspecified, uncomplicated; Y90.9 Presence of alcohol in blood, level not specified; E78.5 Hyperlipidemia, unspecified; D69.6 Thrombocytopenia, unspecified; Y92.89 Other specified places as the place of occurrence of the external cause; F11.90 Opioid use, unspecified, uncomplicated
CPT/HCPCS: 36415; 71045; 76770; 80048; 80053; 80061; 80074; 80076; 80307; 80320; 81001; 82550; 82570; 82803; 83735; 84100; 84156; 84300; 84439; 84443; 84484; 85025; 85027; 85610; 89050; 93005; 94640; 94760; 99406; G0378; J3490; Q9967; G0480; J0610; J1200; J1644; J1815; J2250; J2270; J2310; J3010; J3475; J3486; J7030; J7040; J7042; J7070; U0003